=== PATIENT | female | born 2005 | race Caucasian/White ===

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

== ENCOUNTER → 2025-09-25 | Outpatient (CLI) | payer BC, SELFPAY ==
--- OUTSIDE RECORDS SUMMARY | 2025-09-25 19:12 | XMS RPT_ITS | CCD ---
Author Organization [facility] Care Team Providers Care District Engineer Name Role Phone Cassandra Mendoza Unavailable Eileen Matthews N Unavailable Cassandra Mendoza Unavailable [phone] Judith Starr MD Primary Care Provider Norma Murphy MD Primary Care Provider Norma Murphy MD Primary Care Provider SEIFRIED, JUDITH Primary Care Unavailable PODLOGAR, JULISSA Referring Unavailable SEIFRIED, JUDITH Primary Care Unavailable PODLOGAR, JULISSA Referring Unavailable SEIFRIED, JUDITH Primary Care Unavailable GABE ALVAREZ Referring Unavailable PODLOGAR, JULISSA Attending Unavailable NORMA MURPHY Primary Care Unavailab EILEEN Felix Referring Unavailable KATHERINE, NORMA B Primary Care Unavailab le BURSNORMA WARE B Primary Care Unavailab le MARYSELEY, SONIAOPHER B Primary Care Unavailab le Kris, Judith Primary Care Unavailable Dossi, Mary Attending Unavailable Kris, Judith Referring Unavailable Kris, Judith Referring Unavailable Dossi, Mary Attending Unavailable Kris, Judith Primary Care Unavailable Kris, Judith Referring Unavailable Dossi, Mary Attending Unavailable Kris, Judith Primary Care Unavailable Kris, Judith Referring Unavailable Dossi, Mary Attending Unavailable Kris, Judith Primary Care Unavailable Katherine HENDRIX, Norma Pina Primary Care Provider Allergies Allergy Classification Reported Allergen(s) Allergy Type Date of Onset Reaction(s) Facility (3 sources) predniSONE drug allergy 03-03-2017 [facility] Work Phone: (9 sources) prednisoLONE; Translations: [PREDNISOLONE SODIUM PHOSPHATE] Drug Allergy 07-30-2015 Hives [facility] Work Phone: (1 source) predniSONE Drug Allergy 10-29-2023 [facility] Repository Medications Current Medications Medication Drug Class(es) Dates Sig (Normalized) Sig (Original) [id number] 200 actuat albuterol 0.09 mg/actuat metered dose inhaler (10 sources) beta2-Adrenergic Agonist Start: 03-27-2023 take 2 puff(s) by inhalation every four hours as needed for wheezing albuterol HFA (VENTOLIN HFA) 90 mcg/actuation inhaler Inhale 2 Puffs as instructed every 4 hours as needed for wheezing/shortnes s of breath. 1 Each 1 03/27/2023 Active Start: 03-23-2023 take 2 puff(s) by in halation every four hours as needed for wheezing VENTOLIN HFA 90 mcg/actuation inhaler Indications: Wheezing Inhale 2 Puffs as instructed every 4 hours as needed for wheezing/shortness of breath. 18 g 0 03/23/2023 Active Start: 03-25-2022 End: 03-23-2023 take 2 puff(s) by inhalation every four hours as needed for wheezing VENTOLIN HFA 90 mcg/actuation inhaler Inhale 2 Puffs as instructed every 4 hours as needed for wheezing/shortness of breath. 18 g 0 03/25/2022 03/23/2023 Discontinued Start: 01-31-2021 End: 03-25-2022 take 2 puff(s) by mouth every four hours as needed VENTOLIN HFA 90 mcg/actuation inhaler INHALE 2 PUFFS BY MOUTH EVERY 4 HOURS NEEDED AND 20 MINUTES PRIOR TO EXCERCISE 18 g 0 01/31/2021 03/25/2022 Discontinued Comment on above: Inhale 2 Puffs as in structed every 4 hours as needed for wheezing/shortness of breath. INHALE 2 PUFFS BY MO UT EVERY 4 HOURS NEEDED AND 20 MINUTES PRIOR TO EXCERCISE amoxicillin 875 mg / clavulanate 125 mg oral tablet (1 source) Penicillin-class Antibacterial Start: 03-23-20 End: 03-28-20 take 1 tablet by mouth twice daily amoxicillin-clavul anic acid (AUGMENTIN) 875-125 mg per tablet Indications: Acute non-recurrent sinusitis, unspecified location Take 1 tablet by mouth twice daily for 5 days. 10 tablet 0 03/23/2023 03/28/2023 Active Comment on above: Take 1 tablet by sergio th twice daily for 5 days. loratadine 10 mg oral tablet (4 sources) Start: 10-30-20 take 1 tablet by mouth once daily loratadine (CLARITIN) 10 mg tablet Take 1 tablet by mouth once daily. 30 tablet 10/30/2022 Active Comment on above: Take 1 tablet by sergio th once daily. sodium chloride 0.111 meq/ml nasal spray (4 sources) Start: 10-30-20 sodium chloride (SALINE MIST) 0.65 % nasal spray Use 1 Dewitt in the nose as needed for cold/allergy symptoms. 1 mL 10/30/2022 Active Comment on above: Use 1 Dewitt in the n ose as needed for cold/allergy symptoms. Problems Active Problems Problem Classification Problem Date Documented Da te Episodic/Chronic Administrative/social admission (1 source) Patient encounter status; Translations: [Persons encountering health services in other specified circumstances] Episodic Other bone disease and musculoskeletal deformities (1 source) Segmental and somatic dysfunction of cervical region; Translations: [Segmental and somatic dysfunction of cervical region] Onset: 10-29-2023 Episodic Other bone disease and musculoskeletal deformities (1 source) Segmental and somatic dysfunction of lumbar region; Translations: [Segmental and somatic dysfunction of lumbar region] Onset: 10-29-2023 Episodic Other bone disease and musculoskeletal deformities (1 source) Segmental and somatic dysfunction of thoracic region; Translations: [Segmental and somatic dysfunction of thoracic region] Onset: 10-29-2023 Episodic Other connective tissue disease (2 sources) Pain in left foot; Translations: [Pain in left foot] 05-27-2023 Episodic Other connective tissue disease (1 source) Pain in left foot; Translations: [Foot pain, left] Onset: 05-27-2023 Episodic Other lower respiratory disease (1 source) Cough; Translations: [Cough, unspecified type] Episodic Other lower respiratory disease (1 source) Wheezing; Translations: [Wheezing] Episodic Other upper respiratory disease (8 sources) Allergic rhinitis; Translations: [Allergic rhinitis, unspecified] Onset: 07-30-2015 07-30-2015 Chronic Other upper respiratory infections (1 source) Acute sinusitis; Translations: [Acute sinusitis, unspecified] Episodic Spondylosis; intervertebral disc disorders; other back problems (2 sources) Dorsalgia, unspecified; Translations: [Pain in thoracic spine] Onset: 04-29-2023 Episodic Superficial injury; contusion (1 source) Contusion of left foot; Translations: [Contusion of left foot, initial encounter] 05-27-2023 Episodic Past or Other Problems Problem Classification Problem Date Documented Da te Episodic/Chronic Cardiac dysrhythmias (2 sources) Tachycardia; Translations: [Tachycardia, unspecified] Onset: 08-18-2022 Episodic Other injuries and conditions due to external causes (3 sources) Other injury of muscle(s) and tendon(s) of peroneal muscle group at lower leg level, right leg, initial encounter; Translations: [Other injury of muscle(s) and tendon(s) of peroneal muscle group at lower leg level, right leg, initial encounter] Onset: 03-03-2017 03-04-2017 Episodic Other non-traumatic joint disorders (4 sources) Ankle instability; Translations: [Ankle pain] Onset: 03-03-2017 03-04-2017 Episodic Other non-traumatic joint disorders (2 sources) Ankle pain; Translations: [Pain in right ankle and joints of right foot] Onset: 03-03-2017 03-03-2017 Episodic Results Test Name Value Interpretation Reference Range Facility Chiropractic Reporton 2022 Chiropractic Report [facility] [address] [place], [place] [id number] OFFICE VISIT Date of Service: 10/29/23 MR#: [id number] Acct: [id number] Name: IDANIA RUST Rep #: [id number] : 2005 Provider: DAVID [place] Age/Sex: 18/F Location: [facility] Status: Signed Intake Vital Signs 05/05/19 09:48 Height 5 ft 7 in Intake Visit Reasons: Back Pain Chief Complaint: Low back and neck pain Is patient in pain?: Yes (Neck, mid/low back) Pain scale (1-10): 5 Allergies prednisone Allergy (Verified 10/29/23 14:30) Hives Medications NK 03/18/22 [History Confirmed 10/29/23] [facility] Social History Smoking Status: Never smoker alcohol intake: never substance use type: does not use what type of physical activity do you participate in: walking frequency: 5-6 times per week HPI Back Pain Chief Complaint: Mid/lower Back Pain Visit Number: 4 Details: Idania Rust is a 18 year old F here today for neck and low back pain. She states her neck is sore and stiff. 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 Pt. states she feels like her low back is going to 'pop' when she bends forward. She rates her low back pain 5/10 today. She treats pain at home with stretching and heat. Idania reports chiropractic treatments are effective in relieving her pain and discomfort. Denies injury, numbness, tingling, or radiculopathy. Location: neck and Low back Duration: intermittent Aggravating or associated factors: Playing Flute, bending Relieving factors: Chiro/stretching Pain Quality: aching, dull, cramping and other (Tight) Exam Musc General: Yes normal posture, normal gait, joint tenderness and decreased range of motion Cervical Spine: Yes normal cervical lordosis, Yes cervical muscular tenderness bilateral lower paracervical muscle and trapezius, Yes cervical spasm bilateral lower trapezius and paracervical muscles and Yes misalignment misalignment: C2, C5 and C6 Thoracic/Lumber: Yes thoracic and lumbar spine normal to inspection, Yes paraspinal tenderness bilaterally in the mid lumbar and in the lower lumbar and on the left greater than right (upper thoracic), Yes thoraco-lumbar spasm on the left greater than right (trap/levator, paraspinal (T10- L5), QL) and Yes misalignment T1, T2, T3, T6, T7, T8, L3, L4 and L5 Office Procedures Procedures - Chiropractic Procedures Manipulation: Cervical C2 and C6, Lumbar L3 and L5 and Thoracic T3 and T7 Manipulation: 3-4 regions Patient Response: positive Assessment and Plan Assessment and Plan (1) Back pain: Status: Acute Qualifiers: Back pain laterality: left Back pain location: thoracic back pain Chronicity: acute Qualified Code(s): M54.6 - Pain in thoracic spine (2) Segmental and somatic dysfunction of cervical region: Status: Acute (3) Segmental and somatic dysfunction of lumbar region: Status: Acute (4) Segmental and somatic dysfunction of thoracic region: Status: Acute Orders: Orders Chiropractic Treatments Today M54.9 - Dorsalgia, unspecified, M99.01 - Segmental and somatic dysfunction of cervical region, M99.02 - Segmental and somatic dysfunction of thoracic region, M99.03 - Segmental and somatic dysfunction of lumbar region Plan Patient was treated without incident. Continue care as needed. Plan Details Goals Barriers: Goals Decrease pain and spasm Improve ROM Barriers Playing flute Long distance running Follow Up: PRN Coding Level of Care Code No Charge Diagnoses Acute left-sided thoracic back pain M54.6 Back pain laterality: left Back pain location: thoracic back pain Chronicity: acute Segmental and somatic dysfunction of cervical region M99.01 Segmental and somatic dysfunction of lumbar region M99.03 Segmental and somatic dysfunction of thoracic region M99.02 CPT Codes Procedures - Manipulation: 3-4 regions ([id number]) 10/29/23 1600 Date Mary De La Vega Signature: Date (if applicable) CC: [facility] 05-27-2023 [facility] Office Visit (UCWSTR) ---- IDANIA RUST ([id number]) 1 F Date Time Provider Department 05/27/23 11:30 AM EILEEN ABEL [facility] During your visit today, we recorded the following information about you: Temperature Pulse Respiration Blood pressure 98.4 degrees 71/minute 18/minute 122/78 Weight 61 kg Eileen Abel APRN.CNP 05/27/2023 4:44 PM Signed This note was created using NoteWriter. Subjective Idania Rust is a 18 year old female. 18 year old female with no PMH presents for complaints of foot pain. Acute onset yesterday Left foot Endorses that a bench from kitchen table fell onto left foot. +bruising +pain +pain with ROM Denies accompanying injuries. Denies head injury. Denies LOC. Denies neck pain. Denies back pain. Denies prior history of foot fracture or surgery. 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 No faith healer was used. Pain (foot) Pain location: left foot. This is a new problem. The current episode started yesterday. There has been a history of trauma. The problem occurs constantly. The problem has been unchanged. The quality of the pain is described as aching and sharp. The pain is at a severity of 5/10. The pain is moderate. Associated symptoms include joint swelling and a limited range of motion. Pertinent negatives include no fever, inability to bear weight, itching, joint locking, numbness, stiffness or tingling. The symptoms are aggravated by activity. She has tried nothing for the symptoms. The treatment provided no relief. Family history does not include gout or rheumatoid arthritis. There is no history of diabetes, gout, osteoarthritis or rheumatoid arthritis. PAST MEDICAL HISTORY Diagnosis Date Broken fibula 07/2016 Menstrual periods irregular 03/26/2018 NEGATIVE MEDICAL HISTORY 03/2008 Normal Color Vision PAST SURGICAL HISTORY Procedure Laterality Date NONE ALLERGIES Orapred [Prednisolone Sodium Phosphate] MEDICATIONS albuterol HFA (VENTOLIN HFA) 90 mcg/actuation inhaler Inhale 2 Puffs as instructed every 4 hours as needed for wheezing/shortness of breath. sodium chloride (SALINE MIST) 0.65 % nasal spray Use 1 Dewitt in the nose as needed for cold/allergy symptoms. loratadine (CLARITIN) 10 mg tablet Take 1 tablet by mouth once daily. FAMILY HISTORY Problem Relation Age of Onset Asthma Father Social History Tobacco Use Smoking status: Never Smokeless tobacco: Never Vaping Use Vaping Use: Never used Substance Use Topics Alcohol use: No Drug use: No Review of Systems Constitutional: Negative for activity change, appetite change, diaphoresis, fatigue and fever. Eyes: Negative for pain, discharge, redness and itching. Respiratory: Negative for apnea, cough, choking, chest tightness and shortness of breath. Cardiovascular: Negative for chest pain, palpitations and leg swelling. Gastrointestinal: Negative for abdominal pain, diarrhea, nausea and vomiting. Musculoskeletal: Negative for arthralgias, back pain, gout and stiffness. Left foot Skin: Negative for color change, itching, pallor, rash and wound. Allergic/Immunologi c: Negative for environmental allergies, food allergies and immunocompromised state. Neurological: Negative for dizziness, tingling, facial asymmetry and numbness. Hematological: Negative for adenopathy. Does not bruise/bleed easily. Psychiatric/Behavio ral: Negative for agitation and behavioral problems. Objective BP 122/78 Pulse 71 Temp 36.9 ?C (98.4 ?F) (Tympanic) Resp 18 Wt 61 kg (134 lb 6.4 oz) LMP 06/01/2021 SpO2 100% Physical Exam Vitals and nursing note reviewed. Constitutional: General: She is not in acute distress. Appearance: Normal appearance. She is normal weight. She is not ill-appearing, toxic-appearing or diaphoretic. HENT: Head: Normocephalic and atraumatic. Right Ear: Ear canal and external ear normal. Left Ear: Ear canal and external ear normal. Nose: Nose normal. No congestion or rhinorrhea. Mouth/Throat: Mouth: Mucous membranes are moist. Pharynx: No oropharyngeal exudate or posterior oropharyngeal erythema. Eyes: General: Right eye: No discharge. Left eye: No discharge. Extraocular Movements: Extraocular movements intact. Conjunctiva/sclera: Conjunctivae normal. Pupils: Pupils are equal, round, and reactive to light. Cardiovascular: Rate and Rhythm: Normal rate and regular rhythm. Pulses: Normal pulses. Heart sounds: Normal heart sounds. No murmur heard. No friction rub. Pulmonary: Effort: Pulmonary effort is normal. No respiratory distress. Breath sounds: Normal breath sounds. No stridor. No wheezing, rhonchi or rales. Chest: Chest wall: No tenderness. Abdominal: General: Abdomen is flat. There is no distension. Palpations: Abdomen is soft. There is no mass. Tenderness: (more content not included)... Normal [facility] XR FOOT 3V AP/LAT/OBL LTon 0 05-27-2023 XR FOOT 3V AP/LAT/OBL LT * * *Final Report* * * DATE OF EXAM: May 27 2023 12:19PM [id number] - XR FOOT 3V AP/LAT/OBL LT / PROCEDURE REASON: Foot pain, left * * * * Physician Interpretation * * * * TITLE: XR FOOT 3V AP/LAT/OBL LT CLINICAL INDICATION: Pain TECHNIQUE: 3 view radiographic study of the left foot COMPARISON: None FINDINGS: No acute fracture or dislocation identified. Joint spaces preserved. IMPRESSION: No radiographic evidence of acute osseous abnormality Ceramic Coater Machine: [facility] Transcribe Date/Time: May 27 2023 12:25P Dictated by : AMBER GRADY MD This examination was interpreted and the report reviewed and electronically signed by: AMBER GRADY MD on May 27 2023 12:26PM EST [id number] Normal [facility] XR FOOT GENERAL 3V AP/LAT/OB L LEFTon 05-27-2023 [facility] XR Foot - left AP and Latera l and obliqueon 05-27-2023 IMPRESSION: No radiographic evidence of acute osseous abnormality Ceramic Coater Machine: [facility] Transcribe Date/Time: May 27 2023 12:25P Dictated by : AMBER GRADY MD This examination was interpreted and the report reviewed and electronically signed by: AMBER GRADY MD on May 27 2023 12:26PM EST DIVISION OF RADIOLOGY * * *Final Report* * * DATE OF EXAM: May 27 2023 12:19PM [id number] - XR FOOT 3V AP/LAT/OBL LT / PROCEDURE REASON: Foot pain, left * * * * Physician Interpretation * * * * TITLE: XR FOOT 3V AP/LAT/OBL LT CLINICAL INDICATION: Pain TECHNIQUE: 3 view radiographic study of the left foot COMPARISON: None FINDINGS: No acute fracture or dislocation identified. Joint spaces preserved. DIVISION OF RADIOLOGY Provider, [facility] [place] - 05/27/2023 * * *Final Report* * * DATE OF EXAM: May 27 2023 12:19PM WOX [id number] - XR FOOT 3V AP/LAT/OBL LT / PROCEDURE REASON: Foot pain, left * * * * Physician Interpretation * * * * TITLE: XR FOOT 3V AP/LAT/OBL LT CLINICAL INDICATION: Pain TECHNIQUE: 3 view radiographic study of the left foot COMPARISON: None FINDINGS: No acute fracture or dislocation identified. Joint spaces preserved. IMPRESSION IMPRESSION: No radiographic evidence of acute osseous abnormality Ceramic Coater Machine: [facility] Transcribe Date/Time: May 27 2023 12:25P Dictated by : AMBER GRADY MD This examination was interpreted and the report reviewed and electronically signed by: AMBER GRADY MD on May 27 2023 12:26PM EST [facility] Radiology Study observation (narrative) [facility] XR Foot - left AP and Latera l and obliqueOrdered By: [facility] Provider on 05-27-2023 [facility] Chiropractic Reporton 2022 Chiropractic Report [facility] [address] [place] [address] OFFICE VISIT Date of Service: 04/29/23 MR#: [id number] Acct: [id number] Name: IDANIA RUST Rep #: [id number] : 2005 Provider: DAVID [place] Age/Sex: 18/F Location: [facility] Status: Signed Intake Intake Visit Reasons: Back Pain Chief Complaint: Low back and neck pain Is patient in pain?: Yes (low back ) Pain scale (1-10): 5 Allergies prednisone Allergy (Verified 04/29/23 10:09) Hives Medications NK 03/18/22 [History Confirmed 04/29/23] [facility] Social History Smoking Status: Never smoker alcohol intake: never substance use type: does not use what type of physical activity do you participate in: walking frequency: 5-6 times per week HPI Back Pain Chief Complaint: Mid/lower Back Pain Visit Number: 3 Details: Idania Rust is a 18 year old F here today for neck and low back pain. 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 She advisesshe experienced another episode in her low back last Thursday while she was at work a strange sensation in the left side of her low back like her pants were bunched up and she also had some numbness and tingling as well. She states it lasted about 12 hours and is now just sore and tight. Pt. states she feels like her low back is going to 'pop' when she bends forward. She rates her low back pain 5/10 today. She treats pain at home with stretching and heat. Idania reports chiropractic treatments are effective in relieving her pain and discomfort. Denies injury, numbness, tingling, or radiculopathy. Location: neck and Low back Duration: intermittent Aggravating or associated factors: Playing Flute, bending Relieving factors: Chiro/stretching Pain Quality: aching, dull, cramping and other (Tight) Exam Musc General: Yes normal posture, normal gait, joint tenderness and decreased range of motion Cervical Spine: Yes normal cervical lordosis, Yes cervical muscular tenderness bilateral lower paracervical muscle and trapezius, Yes cervical spasm bilateral lower trapezius and paracervical muscles and Yes misalignment misalignment: C2, C5 and C6 Thoracic/Lumber: Yes thoracic and lumbar spine normal to inspection, Yes paraspinal tenderness bilaterally in the mid lumbar and in the lower lumbar and on the left greater than right (upper thoracic), Yes thoraco-lumbar spasm on the left greater than right (trap/levator, paraspinal (T10- L5), QL) and Yes misalignment T1, T2, T3, T6, T7, T8, L3, L4 and L5 Office Procedures Procedures - Chiropractic Procedures Manipulation: Cervical C2 and C6, Lumbar L3 and L5 and Thoracic T3 and T7 Manipulation: 3-4 regions Patient Response: positive Assessment and Plan Assessment and Plan (1) Back pain: Status: Acute Qualifiers: Back pain laterality: left Back pain location: thoracic back pain Chronicity: acute Qualified Code(s): M54.6 - Pain in thoracic spine (2) Segmental and somatic dysfunction of cervical region: Status: Acute (3) Segmental and somatic dysfunction of lumbar region: Status: Acute (4) Segmental and somatic dysfunction of thoracic region: Status: Acute Orders: Orders Chiropractic Treatments 04/29/23 M54.6 - Pain in thoracic spine, M99.01 - Segmental and somatic dysfunction of cervical region, M99.02 - Segmental and somatic dysfunction of thoracic region, M99.03 - Segmental and somatic dysfunction of lumbar region Plan Patient was treated without incident. Continue care. Plan Details Goals Barriers: Goals Decrease pain and spasm Improve ROM Barriers Playing flute Long distance running Follow Up: PRN Coding Level of Care Code No Charge Diagnoses Back pain M54.6 Back pain laterality: left Back pain location: thoracic back pain Chronicity: acute Segmental and somatic dysfunction of cervical region M99.01 Segmental and somatic dysfunction of lumbar region M99.03 Segmental and somatic dysfunction of thoracic region M99.02 CPT Codes Procedures - Manipulation: 3-4 regions ([id number]) 05/04/23 1011 Date Mary De La Vega Signature: Date (if applicable) CC: Normal [facility] Chiropractic Reporton 2022 Chiropractic Report [facility] [address] [place] [address] OFFICE VISIT Date of Service: 04/13/23 MR#: [id number] Acct: [id number] Name: IDANIA RUST Rep #: [id number] : 2005 Provider: DAVID [place] Age/Sex: 18/F Location: [facility] Status: Signed Intake Intake Visit Reasons: Back Pain Chief Complaint: Low back and neck pain Allergies prednisone Allergy (Verified 08/18/22 09:24) Hives [facility] Social History Smoking Status: Never smoker alcohol intake: never substance use type: does not use what type of physical activity do you participate in: walking frequency: 5-6 times per week HPI Back Pain Chief Complaint: Mid/lower Back Pain Visit Number: 2 Details: Idania Rust is an 17 year old F here today for neck and low back pain. 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 She rates her neck pain 8/10 today. She advises she was experiencing a strange sensation in her low back like her pants were bunched up last but there was no palpatable lump or bump. She states she is no longer experiencing that feeling but it still doesn't feel 'right'. She treats pain at home by stretching and heat. Idania reports chiropractic treatments are effective in relieving her pain and discomfort. Denies injury, numbness, tingling, or radiculopathy. Location: neck and Low back Duration: intermittent Aggravating or associated factors: Playing Flute Relieving factors: Chiro/stretching Pain Quality: aching, dull, cramping and other (Tight) Exam Musc General: Yes normal posture, normal gait, joint tenderness and decreased range of motion Cervical Spine: Yes normal cervical lordosis, Yes cervical muscular tenderness bilateral lower paracervical muscle and trapezius, Yes cervical spasm bilateral lower trapezius and paracervical muscles and Yes misalignment misalignment: C2, C5 and C6 Thoracic/Lumber: Yes thoracic and lumbar spine normal to inspection, Yes paraspinal tenderness bilaterally in the mid lumbar and in the lower lumbar and on the left greater than right (upper thor acic), Yes thoraco-lumbar spasm on the left greater than right (trap/levator, paraspinal (T10-L5), QL) and Yes misalignment T1, T2, T3, T6, T7, T8, L3, L4 and L5 Office Procedures Procedures - Chiropractic Procedures Manipulation: Cervical C2 and C6, Lumbar L3 and L5 and Thoracic T3 and T7 Manipulation: 3-4 regions Patient Response: positive Assessment and Plan Assessment and Plan (1) Back pain: Status: Acute Qualifiers: Back pain laterality: left Back pain location: thoracic back pain Chronicity: acute Qualified Code(s): M54.6 - Pain in thoracic spine (2) Segmental and somatic dysfunction of cervical region: Status: Acute (3) Segmental and somatic dysfunction of lumbar region: Status: Acute (4) Segmental and somatic dysfunction of thoracic region: Status: Acute Orders: Orders Chiropractic Treatments 04/13/23 M54.6 - Pain in thoracic spine, M99.01 - Segmental and somatic dysfunction of cervical region, M99.02 - Segmental and somatic dysfunction of thoracic region, M99.03 - Segmental and somatic dysfunction of lumbar region Plan Patient was treated without incident. Continue care. Plan Details Goals Barriers: Goals Decrease pain and spasm Improve ROM Barriers Playing flute Long distance running Follow Up: PRN Coding Level of Care Code No Charge Diagnoses Back pain M54.6 Back pain laterality: left Back pain location: thoracic back pain Chronicity: acute Segmental and somatic dysfunction of cervical region M99.01 Segmental and somatic dysfunction of lumbar region M99.03 Segmental and somatic dysfunction of thoracic region M99.02 CPT Codes Procedures - Manipulation: 3-4 regions (32730) 04/16/23 1151 Date Mary De La Vega Signature: Date (if applicable) CC: [facility] 03-26-2023 [facility] Telephone ([facility]) ---- IDANIA RUST ([id number]) 1 F Date Time Provider Department 03/26/23 BRENDON ROGER [facility] During your visit today, we recorded the following information about you: Olivia Steele [facility] 03/26/2023 9:25 AM Signed Patient stated Dr. Roger prescribed Ventolin HFA inhaler for her. Pharmacy said insurance won't cover it as written. She thinks it may be because it was written as brand name, but she is not sure. Please review and advise patient if new rx can be sent. [phone]. Norma Murphy MD 03/27/2023 9:17 AM Signed New rx sent without being GABO. Hopefully that fixes it. Belgica Bhakta Ma 03/27/2023 9:46 AM Signed Pt called and notified. Belgica Bhakta Ma Allergies As of Date: 03/26/2023 Noted Allergy Reaction ORAPRED (PREDNISOLONE SODIUM PHOS*07/30/2015 4 - Hives Date Reviewed: 10/30/2022 Reviewed by: Julissa Garrison APRN.SOCIAL WORK ASSISTANT - Fully Assessed Reason for Visit: Rx issue [Other] Order(s):albuterol HFA (VENTOLIN HFA) 90 mcg/actuation inhalerInhale 2 Puffs as instructed every 4 hours as needed for wheezing/shortness of breath.Disp: 1 EachRfl: 1 Prescriptions as of 03/27/2023 - albuterol HFA (VENTOLIN HFA) 90 mcg/actuation inhaler Inhale 2 Puffs as instructed every 4 hours as needed for wheezing/shortness of breath. - amoxicillin-clavula asher acid (AUGMENTIN) 875-125 mg per tablet Take 1 tablet by mouth twice daily for 5 days. - sodium chloride (SALINE MIST) 0.65 % nasal spray Use 1 Dewitt in the nose as needed for cold/allergy symptoms. - loratadine (CLARITIN) 10 mg tablet Take 1 tablet by mouth once daily. Meds Comments as of 07/30/2015: All medications have been reviewed today/July 09, 2007 Carmela Hernandez [facility] Problem List As Of Date 03/26/2023 Noted Resolved Allergic rhinitis [J30.9] 07/30/2015 Prescriptions ordered this encounter Disp Refills Start End ALBUTEROL SULFATE HFA 90 MCG/ACTUATI* 1 Ea* 1 03/27/2023 Cmt: Generic or brand: dispense inhaler preferred by patient/insurance unless GABO flag is selected. Route: INHALATION Sig: Inhale 2 Puffs as instructed every 4 hours as needed for wheezing/shortness of breath. Medications Discontinued During This Encounter Prescriptions - VENTOLIN HFA 90 mcg/actuation inhaler (Discontinued) Inhale 2 Puffs as instructed every 4 hours as needed for wheezing/shortness of breath. Encounter Status:Closed by VIKI DAWKINS MA on 03/27/23 Normal [facility] CNOVon 03-23-2023 CNOV Office Visit ([facility]) ---- IDANIA RUST ([id number]) 1 F Date Time Provider Department 03/23/23 8:00 AM BRENDON ROGER [facility] During your visit today, we recorded the following information about you: Temperature Pulse Respiration Blood pressure 98.3 degrees 98/minute 16/minute 102/64 Weight 62.1 kg Brendon Roger MD 03/23/2023 8:26 AM Signed Patient presents with: Chest Congestion: cough,sinus pressure and headache x 2 weeks HPI: Feeling allergies are flared for 2 weeks with cough, sinus symptoms worsened the last few days. Positive symptoms: Cough, Sinus pressure, Headache, Nasal Congestion, Rhinorrhea, Body Aches one day, green phlegm and sinus drainage Negative symptoms: Fever, Nausea, Vomiting, Diarrhea, OTC: Sudafed once and ran out, Ibuprofen, inhaler improves chest tightness, claritin Exercise induced asthma PAST MEDICAL HISTORY Diagnosis Date Broken fibula 07/2016 Menstrual periods irregular 03/26/2018 NEGATIVE MEDICAL HISTORY 03/2008 Normal Color Vision ACTIVE PROBLEM LIST Allergic Rhinitis MEDICATIONS: Current Outpatient Medications Medication Sig sodium chloride (SALINE MIST) 0.65 % nasal spray Use 1 Dewitt in the nose as needed for cold/allergy symptoms. loratadine (CLARITIN) 10 mg tablet Take 1 tablet by mouth once daily. VENTOLIN HFA 90 mcg/actuation inhaler Inhale 2 Puffs as instructed every 4 hours as needed for wheezing/shortness of breath. No current facility-administer ed medications for this visit. ALLERGIES: ALLERGIES Allergen Reactions Orapred [Prednisolo* Hives VITALS: BP 102/64 Pulse 98 Temp 36.8 ?C (98.3 ?F) Resp 16 Wt 62.1 kg (137 lb) LMP 06/01/2021 SpO2 99% PHYSICAL EXAM: GEN: Pleasant, in no acute distress. HEENT: PERRL, EOMI, conjunctiva clear Ears: canals clear. TMs without erythema, bulge, or effusion Sinuses: points to damon-glabellum as location of pressure Throat: moist mucous membranes, no erythema, no exudate Neck: supple, no thyromegaly, no lymphadenopathy HEART: regular rate and rhythm, no murmurs LUNGS: clear to auscultation, no wheezes or crackles, no increased WOB ASSESSMENT/PLAN: 1. Acute non-recurrent sinusitis, unspecified location - ICD9: 461.9, ICD10: J01.90 (primary diagnosis) Continue allergy treatment - AMOXICILLIN 875 MG-POTASSIUM CLAVULANATE 125 MG TABLET for secondary bacterial sinusitis 2. Wheezing - ICD9: 786.07, ICD10: R06.2 Refill - VENTOLIN HFA 90 MCG/ACTUATION AEROSOL INHALER Patient had adverse side effects from oral steroid as a child. Consider inhaled steroid asthma flare persists. Brendon Roger MD Referring Provider: NORMA MURPHY [[id number]] Allergies As of Date: 03/23/2023 Noted Allergy Reaction ORAPRED (PREDNISOLONE SODIUM PHOS*07/30/2015 4 - Hives Date Reviewed: 10/30/2022 Reviewed by: Julissa Garrison APRN.SOCIAL WORK ASSISTANT - Fully Assessed Reason for Visit: Chest Congestion [236] Cmt: cough,sinus pressure and headache x 2 weeks Primary Visit Diagnosis:Acute non-recurrent sinusitis, unspecified location [J01.90] Other Visit Diagnosis:Wheezing [R06.2] Order(s):amoxicilli n-clavulanic acid (AUGMENTIN) 875-125 mg per tabletTake 1 tablet by mouth twice daily for 5 days.Disp: 10 tabletRfl: 0 VENTOLIN HFA 90 mcg/actuation inhalerInhale 2 Puffs as instructed every 4 hours as needed for wheezing/shortness of breath.Disp: 18 gRfl: 0 Prescriptions as of 03/23/2023 - amoxicillin-clavula asher acid (AUGMENTIN) 875-125 mg per tablet Take 1 tablet by mouth twice daily for 5 days. - VENTOLIN HFA 90 mcg/actuation inhaler Inhale 2 Puffs as instructed every 4 hours as needed for wheezing/shortness of breath. - sodium chloride (SALINE MIST) 0.65 % nasal spray Use 1 Dewitt in the nose as needed for cold/allergy symptoms. - loratadine (CLARITIN) 10 mg tablet Take 1 tablet by mouth once daily. Meds Comments as of 07/30/2015: All medications have been reviewed July 09, 2007 Carmela Hernandez [facility] Problem List As Of Date 03/23/2023 Noted Resolved Allergic rhinitis [J30.9] 07/30/2015 Prescriptions ordered this encounter Disp Refills Start End AMOXICILLIN 875 MG-POTASSIUM CLAVULA* 10 t* 0 03/23/2023 03/28/2023 Route: ORAL Sig: Take 1 tablet by mouth twice daily for 5 days. VENTOLIN HFA 90 MCG/ACTUATION AEROSO* 18 g 0 03/23/2023 Cmt: Generic or brand: dispense inhaler preferred by patient/insurance unless GABO flag is selected. Route: INHALATION Sig: Inhale 2 Puffs as instructed every 4 hours as needed for wheezing/shortness of breath. Medications Discontinued During This Encounter Prescriptions - VENTOLIN HFA 90 mcg/actuation inhaler (Discontinued) Inhale 2 Puffs as instructed every 4 hours as needed for wheezing/shortness of breath. Encounter Status:Closed by BRENDON ROGER on 03/23/23 [facility] Chiropractic Reporton 2022 Chiropractic Report [facility] [address] [place] [address] OFFICE VISIT Date of Service: 11/24/22 MR#: [id number] Acct: [id number] Name: LEORAIDANIA M Rep #: [id number] : 2005 Provider: DAVID [place] Age/Sex: 17/F Location: [facility] Status: Signed Intake Intake Visit Reasons: Back Pain Chief Complaint: Low back and neck pain Is patient in pain?: Yes (neck right hip) Pain scale (1-10): 5 Allergies prednisone Allergy (Verified 08/18/22 09:24) Hives [facility] Social History Smoking Status: Never smoker alcohol intake: never substance use type: does not use what type of physical activity do you participate in: walking frequency: 5-6 times per week HPI Back Pain Chief Complaint: Mid/lower Back Pain Visit Number: 1 Details: Idania Rust is an 17 year old F here today for neck and low back pain. She states her neck is sore and tight especially the right side d/t playing her flute daily.She rates her neck pain 5/10 today. She advises she went skiing over the weekend her right hip and low back feel like she pinched a nerve. She rates her hip pain 4/10 and her pain radiates down her right thigh to her knee at times. She treats pain at home by stretching and heat. Idania states chiropractic treatments are effective in relieving her pain. Denies injury, numbness, tingling, or radiculopathy. Location: neck and Low back Duration: intermittent Aggravating or associated factors: Playing Flute Relieving factors: Chiro/stretching Pain Quality: aching, cramping and other (Tight) Exam Musc General: Yes normal posture, normal gait, joint tenderness and decreased range of motion Cervical Spine: Yes normal cervical lordosis, Yes cervical muscular tenderness bilateral lower paracervical muscle and trapezius, Yes cervical spasm bilateral lower trapezius and paracervical muscles and Yes misalignment misalignment: C2, C5 and C6 Thoracic/Lumber: Yes thoracic and lumbar spine normal to inspection, Yes paraspinal tenderness bilaterally in the upper thoracic, in the mid lumbar and in the lower lumbar, on the right greater than left (lumbopelvic) and on the left greater than right (upper thoracic), Yes thoraco-lumbar spasm on the left greater than right (trap/levator, paraspinal (T10-L5), QL) and Yes misalignment T1, T2, T3, T6, T7, T8, L3, L4 and L5 Office Procedures Procedures - Chiropractic Procedures Manipulation: Cervical C2 and C6, Lumbar L3 and L5 and Thoracic T3 and T7 Manipulation: 3-4 regions Patient Response: positive Assessment and Plan Assessment and Plan (1) Back pain: Status: Acute Qualifiers: Back pain laterality: left Back pain location: thoracic back pain Chronicity: acute Qualified Code(s): M54.6 - Pain in thoracic spine (2) Segmental and somatic dysfunction of cervical region: Status: Acute (3) Segmental and somatic dysfunction of lumbar region: Status: Acute (4) Segmental and somatic dysfunction of thoracic region: Status: Acute Orders: Orders Chiropractic Treatments Today M54.6 - Pain in thoracic spine, M99.01 - Segmental and somatic dysfunction of cervical region, M99.02 - Segmental and somatic dysfunction of thoracic region, M99.03 - Segmental and somatic dysfunction of lumbar region Plan Patient was treated without incident. Continue care. Plan Details Goals Barriers: Goals Decrease pain and spasm Improve ROM Barriers Playing flute Long distance running Follow Up: PRN Coding Level of Care Code No Charge Diagnoses Back pain M54.6 Back pain laterality: left Back pain location: thoracic back pain Chronicity: acute Segmental and somatic dysfunction of cervical region M99.01 Segmental and somatic dysfunction of lumbar region M99.03 Segmental and somatic dysfunction of thoracic region M99.02 CPT Codes Procedures - Manipulation: 3-4 regions (39201) 11/24/22 1114 Date Mary De La Vega Signature: Date (if applicable) CC: [facility] 10-30-2022 [facility] Office Visit ([facility]) ---- IDANIA RUST ([id number]) 1 F Date Time Provider Department 10/30/22 4:15 PM [facility] During your visit today, we recorded the following information about you: Temperature Pulse Respiration Blood pressure 98.2 degrees 104/minute 18/minute 130/82 Weight 58.4 kg Julissa Garrison APRN.SOCIAL WORK ASSISTANT 10/30/2022 4:37 PM Signed Subjective HPI Rossy presents today with three day hx of cough, congestion, and both ears feel full. She is not feverish, she is eating and drinking. She has used her albuterol once today. Blood pressure 130/82, pulse 104, temperature 36.8 ?C (98.2 ?F), temperature source Tympanic, resp. rate 18, weight 58.4 kg (128 lb 12.8 oz), last menstrual period 06/01/2021, SpO2 99 %. PAST MEDICAL HISTORY Diagnosis Date Broken fibula 07/2016 Menstrual periods irregular 03/26/2018 NEGATIVE MEDICAL HISTORY 03/2008 Normal Color Vision PAST SURGICAL HISTORY Procedure Laterality Date NONE ALLERGIES Orapred [Prednisolone Sodium Phosphate] MEDICATIONS VENTOLIN HFA 90 mcg/actuation inhaler Inhale 2 Puffs as instructed every 4 hours as needed for wheezing/shortness of breath. sodium chloride (SALINE MIST) 0.65 % nasal spray Use 1 Dewitt in the nose as needed for cold/allergy symptoms. loratadine (CLARITIN) 10 mg tablet Take 1 tablet by mouth once daily. FAMILY HISTORY Problem Relation Age of Onset Asthma Father Social History Tobacco Use Smoking status: Never Smokeless tobacco: Never Vaping Use Vaping Use: Never used Substance Use Topics Alcohol use: No Drug use: No Review of Systems HENT: Ears feel full Respiratory: Positive for cough. All other systems reviewed and are negative. Objective Physical Exam Vitals and nursing note reviewed. Constitutional: Appearance: Normal appearance. HENT: Head: Normocephalic and atraumatic. Right Ear: Tympanic membrane, ear canal and external ear normal. Left Ear: Tympanic membrane, ear canal and external ear normal. Ears: Comments: Scant amount of fluid behind Tm Nose: Congestion present. Mouth/Throat: Mouth: Mucous membranes are dry. Pharynx: No oropharyngeal exudate or posterior oropharyngeal erythema. Eyes: Pupils: Pupils are equal, round, and reactive to light. Cardiovascular: Rate and Rhythm: Normal rate and regular rhythm. Heart sounds: No murmur heard. Pulmonary: Effort: Pulmonary effort is normal. No respiratory distress. Breath sounds: Normal breath sounds. No stridor. No wheezing, rhonchi or rales. Chest: Chest wall: No tenderness. Abdominal: General: Abdomen is flat. Palpations: Abdomen is soft. Musculoskeletal: General: Normal range of motion. Cervical back: Normal range of motion and neck supple. Lymphadenopathy: Cervical: No cervical adenopathy. Skin: General: Skin is warm and dry. Neurological: General: No focal deficit present. Mental Status: She is alert and oriented to person, place, and time. ASSESSMENT/PLAN: 1. Cough, unspecified type - ICD9: 786.2, ICD10: R05.9 Viral appearing Increased fluids Tea and honey Saline nasal spray Claritin Continue to use albuterol as needed - COVID WITH FLUA+B, ROUTINE Julissa Garrison APRN.SOCIAL WORK ASSISTANT Referring Provider: SELF [200] Allergies As of Date: 10/30/2022 Noted Allergy Reaction ORAPRED (PREDNISOLONE SODIUM PHOS*07/30/2015 4 - Hives Date Reviewed: 10/30/2022 Reviewed by: Julissa Garrison APRN.SOCIAL WORK ASSISTANT - Fully Assessed Reason for Visit: Ear Pain [817] Cmt: Bilateral ear pain, congestion and tight chest x 2 days Primary Visit Diagnosis:Cough, unspecified type [R05.9] Order(s):COVID WITH FLUA+B, ROUTINE [SQCOVFLU] Order #: [id number] sodium chloride (SALINE MIST) 0.65 % nasal sprayUse 1 Dewitt in the nose as needed for cold/allergy symptoms.Disp: 1 mLRfl: 0 loratadine (CLARITIN) 10 mg tabletTake 1 tablet by mouth once daily.Disp: 30 tabletRfl: 0 Prescriptions as of 10/30/2022 - sodium chloride (SALINE MIST) 0.65 % nasal spray Use 1 Dewitt in the nose as needed for cold/allergy symptoms. - loratadine (CLARITIN) 10 mg tablet Take 1 tablet by mouth once daily. - VENTOLIN HFA 90 mcg/actuation inhaler Inhale 2 Puffs as instructed every 4 hours as needed for wheezing/shortness of breath. Meds Comments as of 07/30/2015: All medications have been reviewed /July 09, 2007 Carmela Hernandez [facility] Problem List As Of Date 10/30/2022 Noted Resolved Allergic rhinitis [J30.9] 07/30/2015 Prescriptions ordered this encounter Disp Refills Start End SALINE MIST 0.65 % NASAL SPRAY AEROS* 1 mL 0 10/30/2022 Route: NASAL Sig: Use 1 Dewitt in the nose as needed for cold/allergy symptoms. LORATADINE 10 MG TABLET 30 t* 0 10/30/2022 Route: ORAL Sig: Take 1 tablet by mouth once daily. Encounter Status:Closed by JULISSA GARRISON on 10/30/22 [facility] 08-19-2022 [facility] Telephone (FAMWS) ---- IDANIA RUST ([id number]) 1 F Date Time Provider Department 08/19/22 JULISSA MCCRAY During your visit today, we recorded the following information about you: Julissa Mccray APRN.BHARATH 08/19/2022 7:58 AM Signed Please call patient and let her know her blood work is in normal limits. Julissa Mccray APRN.BHARATH German LPN 08/19/2022 8:58 AM Signed Number on file is mother Eileen. Results given. Voices understanding. Deedee German LPN Allergies As of Date: 08/19/2022 Noted Allergy Reaction ORAPRED (PREDNISOLONE SODIUM PHOS*07/30/2015 4 - Hives Date Reviewed: 08/18/2022 Reviewed by: Deedee German LPN - Fully Assessed Reason for Visit: Results [95] Prescriptions as of 08/19/2022 - VENTOLIN HFA 90 mcg/actuation inhaler Inhale 2 Puffs as instructed every 4 hours as needed for wheezing/shortness of breath. Meds Comments as of 07/30/2015: All medications have been reviewed today/July 09, 2007 Carmela Hernandez [facility] Problem List As Of Date 08/19/2022 Noted Resolved Allergic rhinitis [J30.9] 07/30/2015 Encounter Status:Closed by DEEDEE GERMAN on 08/19/22 [facility] CBC panel Auto (Bld)on 08-18 Erythrocyte distribution width (RBC) [Ratio] 13.4 % 11.5 - 15.0 % [facility] Hematocrit (Bld) [Volume fraction] 42.1 % 36.0 - 46.0 % [facility] Hemoglobin (Bld) [Mass/Vol] 13.8 g/dL 11.5 - 15.5 g/dL [facility] MCH (RBC) [Entitic mass] 28.9 pg 26.0 - 34.0 pg [facility] MCHC (RBC) [Mass/Vol] 32.8 g/dL 30.5 - 36.0 g/dL [facility] MCV (RBC) [Entitic vol] 88.3 fL 80.0 - 100.0 fL [facility] Nucleated RBC (Bld) [#/Vol] <0.01 k/uL [facility] Platelet mean volume (Bld) [Entitic vol] 9.0 fL 9.0 - 12.7 fL [facility] Platelets (Bld) [#/Vol] 259 10*3/uL 150 - 400 k/uL [facility] RBC (Bld) [#/Vol] 4.77 10*6/uL 3.90 - 5.2 0 m/uL [facility] WBC (Bld) [#/Vol] 6.46 10*3/uL 3.70 - 11. 00 k/uL [facility] Erythrocyte distribution width (RBC) [Ratio] 13.4 % Normal 11.5-15.0 [facility] Comment on above: Order Comment: Speci men Type: BLOOD SPECIMEN Ordering Facility: [facility] Address: [address] [place] [address] Performed By: #### 2 4323-8, 3016-3 #### [facility] CLIA [id number] [address] [place] [id number] [place] [facility] Hematocrit (Bld) [Volume fraction] 42.1 % Normal 36.0-46.0 [facility] Comment on above: Order Comment: Speci men Type: BLOOD SPECIMEN Ordering Facility: [facility] Address: [address] [place] [id number] Performed By: #### 2 4323-8, 3016-3 #### [facility] CLIA [id number] [address] [place] [address] [place] Hemoglobin (Bld) [Mass/Vol] 13.8 g/dL Normal 11.5-15.5 [facility] Comment on above: Order Comment: Speci men Type: BLOOD SPECIMEN Ordering Facility: [facility] Address: [address] [place] [address] Performed By: #### 2 4323-8, 3016-3 #### [facility] CLIA [id number] [address] [place] [address] [place] MCH (RBC) [Entitic mass] 28.9 pg Normal 26.0-34.0 [facility] Comment on above: Order Comment: Speci men Type: BLOOD SPECIMEN Ordering Facility: [facility] Address: [address] [place], [place] [id number] Performed By: #### 2 4323-8, 3016-3 #### [facility] CLIA [id number] [address] [place] [address] [place] MCHC (RBC) [Mass/Vol] 32.8 g/dL Normal 30.5-36.0 [facility] Comment on above: Order Comment: Speci men Type: BLOOD SPECIMEN Ordering Facility: [facility] Address: [address] [place] [address] Performed By: #### 2 4323-8, 3016-3 #### [facility] CLIA [id number] [address] [place] [address] [place] MCV (RBC) [Entitic vol] 88.3 fL Normal 80.0-100.0 [facility] Comment on above: Order Comment: Speci men Type: BLOOD SPECIMEN Ordering Facility: [facility] Address: [address] [place] [address] Performed By: #### 2 4323-8, 3016-3 #### [facility] CLIA [id number] [address] [id number] [address] [place] Nucleated RBC (Bld) [#/Vol] 10*3/uL Normal <0.01 [facility] Comment on above: Order Comment: Speci men Type: BLOOD SPECIMEN Ordering Facility: [facility] Address: [address] [place] [id number] Performed By: #### 2 4323-8, 3016-3 #### [facility] CLIA [id number] [address] [place] [address] [place] Platelet mean volume (Bld) [Entitic vol] 9.0 fL Normal 9.0-12.7 [facility] Comment on above: Order Comment: Speci men Type: BLOOD SPECIMEN Ordering Facility: [facility] Address: [address] [place], [place] [id number] Performed By: #### 2 4323-8, 3016-3 #### [facility] CLIA [id number] [address] [place] [address] [place] Platelets (Bld) [#/Vol] 259 10*3/uL Normal 150-400 [facility] Comment on above: Order Comment: Speci men Type: BLOOD SPECIMEN Ordering Facility: [facility] Address: [address] [place], [place] [phone] Performed By: #### 2 4323-8, 3016-3 #### [facility] CLIA [id number] [address] [place] [address] [place] RBC (Bld) [#/Vol] 4.77 10*6/uL Normal 3.90-5.20 [facility] Comment on above: Order Comment: Speci men Type: BLOOD SPECIMEN Ordering Facility: [facility] Address: [address] [place], [place] [phone] Performed By: #### 2 4323-8, 3016-3 #### [facility] CLIA [id number] [address] [place] [address] [place] WBC (Bld) [#/Vol] 6.46 10*3/uL Normal 3.70-11.00 [facility] Comment on above: Order Comment: Speci men Type: BLOOD SPECIMEN Ordering Facility: [facility] Address: [address] [place] [phone] Performed By: #### 2 4323-8, 3016-3 #### [facility] CLIA [id number] [address] [place] [address] [id number] [place], [place] [id number] [facility] CNOVon 08-18-2022 CNOV Office Visit (FAMPWS) ---- IDANIA RUST ([id number]) 1 F Date Time Provider Department 08/18/22 10:00 AM JULISSA MCCRAY During your visit today, we recorded the following information about you: Pulse Respiration Blood pressure Weight 71/minute 16/minute 108/72 57.4 kg Julissa Mccray APRN.CNP 08/18/2022 12:16 PM Signed 08/18/2022 Patient presents with: Transition Of Care SUBJECTIVE: This is a 17 year old that is here today for Above Complaints.. 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 Since COVID-19 last year has had some racing heart issues. Notices it mostly about two weeks before her menstrual cycle. Also feels heart races when going up stairs at times. When she gets them last a few minutes. Admits to SOB with them but thinks maybe that is because it scares her. Denies accompanying diaphoresis, dizziness, lightheadedness, dyspnea, cough, chest pain, jaw/back pain, or nausea. Runs about two miles a day. Does not have any issues when she runs or after. Past medical, surgical, family, social hx, medications, allergies and health maintenance reviewed and updated PAST MEDICAL HISTORY Diagnosis Date Broken fibula 07/2016 Menstrual periods irregular 03/26/2018 NEGATIVE MEDICAL HISTORY 03/2008 Normal Color Vision ALLERGIES Orapred [Prednisolone Sodium Phosphate] MEDICATIONS Current Outpatient Medications Medication Sig VENTOLIN HFA 90 mcg/actuation inhaler Inhale 2 Puffs as instructed every 4 hours as needed for wheezing/shortness of breath. No current facility-administer ed medications for this visit. Medications and allergies reviewed by this provider. SOCIAL HISTORY Social History Tobacco Use Smoking status: Never Smokeless tobacco: Never Substance Use Topics Alcohol use: No Drug use: No REVIEW OF SYSTEMS GENERAL: No weight loss, malaise or fevers HEENT: Negative for frequent or significant headaches, No changes in hearing or vision, no nose bleeds or other nasal problems NECK: Negative for lumps, goiter, pain and significant neck swelling RESPIRATORY: Negative for cough, hemoptysis, wheezing, COPD, dyspnea or shortness of breath CARDIOVASCULAR: Negative for chest pain, leg swelling, hypertension, CHF GI: No nausea, vomiting, or diarrhea : No history of dysuria, frequency or incontinence ARCHITECT MANAGER: Negative for abnormal vaginal bleeding, abnormal vaginal discharge MUSCULOSKELETAL: Negative for joint pain or swelling, back pain or muscle pain SKIN: Negative for lesions, rash, and itching PSYCH: Negative for sleep disturbance, mood disorder and recent psychosocial stressors HEMATOLOGY/LYMPHOLO GY: Negative for prolonged bleeding, bruising easily or swollen nodes ENDOCRINE: Negative for cold or heat intolerance, polyuria, polydipsia and goiter NEURO: No history of headaches, syncope, paralysis, seizures or tremors OBJECTIVE: BP 108/72 Pulse 71 Resp 16 Wt 57.4 kg (126 lb 9.6 oz) LMP 06/01/2021 SpO2 100% . Vital signs reviewed by this provider. APPEARANCE Well appearing, alert, in no acute distress, well-hydrated, well nourished. EYES PERRLA, conjunctiva and sclera normal. EARS External ears normal, canals clear NECK Supple, no adenopathy; thyroid symmetric, normal size, no bruits HEART RRR with normal S1 and S2, no murmurs, no gallops, no JVD appreciated LUNG clear to auscultation. No wheezes, rhonchi or rales EXTREMITIES Extremities normal, No deformities, No skin discoloration, and No edema SKIN Skin color, texture, turgor normal, no suspicious rashes or lesions to exposed skin INFLUENZA(1) due on 05/08/2023 GC (GONORRHEA) SCREENING (18-24) due on 08/18/2023 MENINGOCOCCAL B: Consider based on risk(1 of 2 - Risk Bexsero 2-dose series) due on 08/18/2023 HEPATITIS C SCREENING due on 08/18/2023 HIV SCREENING due on 08/18/2023 COVID-19 VACCINE(1) due on 08/18/2023 CHLAMYDIA SCREENING (18-24) due on 08/18/2023 DTAP,TDAP,TD(7 - Td or Tdap) due on 04/26/2024 HEPATITIS B Completed HPV VACCINE Completed MENINGOCOCCAL CONJUGATE Completed DEPRESSION ASSESSMENT Completed ASSESSMENT/PLAN: 1. Routine physical examination - ICD9: V70.0, ICD10: Z00.00 (primary diagnosis) - Counseled on healthy diet and regular exercise - Depression screening tool completed and reviewed with patient. Based on score and interview, patient is not at risk for depression and recommended no further intervention at this time. - Follow up for annual exam in one year 2. Racing heart beat - ICD9: 785.0, ICD10: R00.0 - no red flag symptoms or exam findings - red flag symptoms discussed, verbalizes understanding - TSH BLD - COMP METABOLIC PANEL - CBC - ECG COMPLETE EKG Interpretation: RHYTHM: Normal sinus rhythm at 63 beats per minute with marked sinus arrhythmia AXIS: Normal axis INTERVALS: Normal MN interval QRS COMPLEX: Normal (more content not included)... Normal [facility] Comprehensive metabolic 2000 panelon 08-18-2022 Albumin [Mass/Vol] 4.9 g/dL Normal 3.9-4.9 [facility] Comment on above: Order Comment: Speci men Type: BLOOD SPECIMEN Ordering Facility: [facility] Address: [address] [place], [place] [phone] Performed By: #### 2 4323-8, 3016-3 #### [facility] CLIA [id number] [address] [place] [address] [place] ALP [Catalytic activity/Vol] 85 U/L Normal 34-123 [facility] Comment on above: Order Comment: Speci men Type: BLOOD SPECIMEN Ordering Facility: [facility] Address: [address] [place], [place] [phone] Performed By: #### 2 4323-8, 3016-3 #### [facility] CLIA [id number] [address] [place] [address] [place] ALT [Catalytic activity/Vol] 22 U/L Normal 7-38 [facility] Comment on above: Order Comment: Speci men Type: BLOOD SPECIMEN Ordering Facility: [facility] Address: [address] [place] [address] Performed By: #### 2 4323-8, 3016-3 #### [facility] CLIA [id number] [address] [place] [address] [place] Anion gap [Moles/Vol] 11 mmol/L Normal 9-18 [facility] Comment on above: Order Comment: Speci men Type: BLOOD SPECIMEN Ordering Facility: [facility] Address: [address] [place] [address] Performed By: #### 2 4323-8, 3015-3 #### [facility] CLIA [id number] [address] [place] [address] [place] AST [Catalytic activity/Vol] 30 U/L Normal 13-35 [facility] Comment on above: Order Comment: Speci men Type: BLOOD SPECIMEN Ordering Facility: [facility] Address: [address] [place] [address] Performed By: #### 2 4323-8, 6-3 #### [facility] CLIA [id number] [address] [place] [address] [place] Bilirubin [Mass/Vol] 0.5 mg/dL Normal 0.2-1.3 [facility] Comment on above: Order Comment: Speci men Type: BLOOD SPECIMEN Ordering Facility: [facility] Address: [address] [place] [address] Performed By: #### 2 4323-8, 3016-3 #### [facility] CLIA [id number] [address] [place] [address] [place] Calcium [Mass/Vol] 10.0 mg/dL Normal 8.5-10.2 [facility] Comment on above: Order Comment: Speci men Type: BLOOD SPECIMEN Ordering Facility: [facility] Address: [address] [place], [place] [phone] Performed By: #### 2 4323-8, 3016-3 #### [facility] CLIA [id number] [address] [place] [address] [place] Chloride [Moles/Vol] 106 mmol/L High 97-105 [facility] Comment on above: Order Comment: Speci men Type: BLOOD SPECIMEN Ordering Facility: [facility] Address: [address] [place] [address] Performed By: #### 2 4323-8, 6-3 #### [facility] CLIA [id number] [address] [place] [address] [place] CO2 [Moles/Vol] 25 mmol/L Normal 22-30 [facility] Comment on above: Order Comment: Speci men Type: BLOOD SPECIMEN Ordering Facility: [facility] Address: [address] [place], [place] [phone] Performed By: #### 2 4323-8, 3016-3 #### [facility] CLIA [id number] [address] [place] [address] [place] Creatinine [Mass/Vol] 0.64 mg/dL Normal 0.58-0.96 [facility] Comment on above: Order Comment: Speci men Type: BLOOD SPECIMEN Ordering Facility: [facility] Address: [address] [place], [place] [phone] Performed By: #### 2 4323-8, 3016-3 #### [facility] CLIA [id number] [address] [place] [address] [place] ESTIMATED GLOMERULAR FILTRATION RATE 131 mL/min/1.73m??? Normal >=60 [facility] Comment on above: Order Comment: Milind esparza Type: BLOOD SPECIMEN Ordering Facility: [facility] Address: [address] [place] [address] Result Comment: Anna mated Glomerular Filtration Rate (eGFR) is calculated using the 2020 CKD-EPI creatinine equation. This equation utilizes serum creatinine, sex, and age as parameters. The creatinine assay has traceable calibration to isotope dilution-mass spectrometry. Refer to KDIGO guidelines for clinical interpretation. In patients with unstable renal function, e.g. those with acute kidney injury, the eGFR may not accurately reflect actual GFR. Performed By: #### 2 4323-8, 3016-3 #### [facility] CLIA [id number] [address] [place] [address] [place] Glucose [Mass/Vol] 88 mg/dL Normal 74-99 [facility] Comment on above: Order Comment: Milind esparza Type: BLOOD SPECIMEN Ordering Facility: [facility] Address: [address] [place] [address] Result Comment: The [place] Diabetes Association (ADA) provides guidance for cutoff values for fasting glucose and random glucose. The ADA defines fasting as no caloric intake for at least 8 hours. Fasting plasma glucose results between 100 to 125 mg/dL indicate increased risk for diabetes (prediabetes). Fasting plasma glucose results greater than or equal to 126 mg/dL meet the criteria for diagnosis of diabetes. In the absence of unequivocal hyperglycemia, results should be confirmed by repeat testing. In a patient with classic symptoms of hyperglycemia or hyperglycemic crisis, random plasma glucose results greater than or equal to 200 mg/dL meet the criteria for diagnosis of diabetes. Reference: Standards of Medical Care in Diabetes 2016, [place] Diabetes Association. Diabetes Care. 2016.39(Suppl 1). Performed By: #### 2 4323-8, 3016-3 #### [facility] CLIA [id number] [address] [place] [address] [place] Potassium [Moles/Vol] 4.7 mmol/L Normal 3.7-5.1 [facility] Comment on above: Order Comment: Milind esparza Type: BLOOD SPECIMEN Ordering Facility: [facility] Address: [address] [place], [place] [phone] Performed By: #### 2 4323-8, 3016-3 #### [facility] CLIA [id number] [address] [place] [address] [place] Protein [Mass/Vol] 7.5 g/dL Normal 6.3-8.0 [facility] Comment on above: Order Comment: Speci men Type: BLOOD SPECIMEN Ordering Facility: [facility] Address: [address] [place], [place] [phone] Performed By: #### 2 4323-8, 6-3 #### [facility] CLIA [id number] [address] [place] [address] [place] Sodium [Moles/Vol] 142 mmol/L Normal 136-144 [facility] Comment on above: Order Comment: Speci men Type: BLOOD SPECIMEN Ordering Facility: [facility] Address: [address] [place], [place] [phone] Performed By: #### 2 4323-8, 6-3 #### [facility] CLIA [id number] [address] [place] [address] [place] Urea nitrogen [Mass/Vol] 8 mg/dL Normal 7-21 [facility] Comment on above: Order Comment: Speci men Type: BLOOD SPECIMEN Ordering Facility: [facility] Address: [address] [place], [place] [phone] Performed By: #### 2 4323-8, 6-3 #### [facility] CLIA [id number] [address] [place] [address] [place] ECG COMPLETEon 08-18-2022 ECG COMPLETE Ventricular Rate : 63 BPM Atrial Rate : 63 BPM P-R Interval : 174 ms QRS Duration : 80 ms Q-T Interval : 400 ms QTC Calculation(Bazett) : 409 ms Calculated P Cromwell : 41 degrees Calculated R Cromwell : 79 degrees Calculated T Cromwell : 58 degrees SINUS RHYTHM WITH MARKED SINUS ARRHYTHMIA OTHERWISE NORMAL ECG Confirmed by SACHIN M.D., MADELINE ([id number]) on 08/20/2022 4:01:32 PM NAME : IDANIA RUST PID : [id number] : 2005 Gender : Female Race : ORD : [id number] Procedure Date : Aug 18 2022 10:48:59 Edit Date : Aug 20 2022 16:01:37 Diagnosis: SINUS RHYTHM WITH MARKED SINUS ARRHYTHMIA OTHERWISE NORMAL ECG Confirmed by MADELINE STEPHENSON M.D. ([id number]) on 08/20/2022 4:01:32 PM Test Reason : Location : [address] : [facility] Overread By : MADELINE STEPHENSON M.D. Edited By : MADELINE STEPHENSON M.D. Referred By : JULISSA MCCRAY Acquired by : Yamilet LOVETT [facility] TSH SerPl-aCncon 08-18-2022 TSH Qn 1.020 m[IU]/L Normal 0.510-4.300 [facility] Comment on above: Order Comment: Speci men Type: BLOOD SPECIMEN Ordering Facility: [facility] Address: [address] [place] [phone] Result Comment: If t he patient is , TSH reference range varies by gestational period: First Trimester (weeks 9-12): 0.180-2.990 mIU/L Second Trimester: 0.110-3.980 mIU/L Third Trimester: 0.480-4.710 mIU/L Aureliano Pacheco et al. A Practical Approach for the Verifications and Determination of Site- and Trimester-Specific Reference Intervals for Thyroid Function tests in . Thyroid, 2019:29:3:412-420. Leighton E, et al. 2017 Guidelines of the [place] Thyroid Association for the Diagnosis and Management of Thyroid Disease during and the . Thyroid, 2017:27:3:315-389. Reference ranges were not locally established for this patient's age group. The normal values are based on the following source: Michelle Post, Vickey Pablo. Reference Ranges for Adults and Children: Pre-analytical Considerations. [facility] Performed By: #### 2 4323-8, 3016-3 #### [facility] CLIA [id number] [address] [place] [id number] [place] Office Visiton 05-07-2017 Documentation of current medications (procedure) Done Invalid Interpretation Code [facility] Work Phone: Documentation of current medications (procedure) T Invalid Interpretation Code [facility] Work Phone: Protein mass conc [facility] Work [facility]: Protein mass conc T [facility] Work Phone: Tobacco smoking status NHIS Never Invalid Interpretation Code [facility] Work Phone: Tobacco smoking status NHIS Never smoker [facility] Work Phone: Tobacco use CPHS Never smoker Invalid Interpretation Code [facility] Work Phone: Office Visiton 03-03-2017 Protein mass conc Done [facility] Work Phone: Protein mass conc T [facility] Work Phone: Tobacco smoking status NHIS Never [facility] Work Phone: Tobacco smoking status NHIS Never smoker [facility] Work Phone: Vital Signs Date Time Vital Sign Value Performing Clinician Francy roche 05-27-2023 11:20-0400 Body temperature 98.4 [degF] Eileen Abel OPTICAL DISPENSER.SOCIAL WORK ASSISTANT Work Phone: [facility] 05-27-2023 11:20-0400 Body weight 60.96 kg Eileen Abel OPTICAL DISPENSER.SOCIAL WORK ASSISTANT Work Phone: [facility] 05-27-2023 11:20-0400 Diastolic blood pressure 78 mm[Hg] Eileen Abel OPTICAL DISPENSER.SOCIAL WORK ASSISTANT Work Phone: [facility] 05-27-2023 11:20-0400 Heart rate 71 /min Eileen Abel OPTICAL DISPENSER.SOCIAL WORK ASSISTANT Work Phone: [facility] 05-27-2023 11:20-0400 Respiratory rate 18 /min Eileen Abel OPTICAL DISPENSER.SOCIAL WORK ASSISTANT Work Phone: [facility] 05-27-2023 11:20-0400 SaO2% (BldA) [Mass fraction] 100 % Eileen Abel OPTICAL DISPENSER.SOCIAL WORK ASSISTANT Work Phone: [facility] 05-27-2023 11:20-0400 Systolic blood pressure 122 mm[Hg] Eileen Abel OPTICAL DISPENSER.SOCIAL WORK ASSISTANT Work Phone: [facility] 03-23-2023 07:58-0400 Body temperature 98.29 [degF] Brendon Roger MD Work Phone: [facility] 03-23-2023 07:58-0400 Body weight 62.14 kg Brendon Roger MD Work Phone: [facility] 03-23-2023 07:58-0400 Diastolic blood pressure 64 mm[Hg] Brendon Roger MD Work Phone: [facility] 03-23-2023 07:58-0400 Heart rate 98 /min Brendon Roger MD Work Phone: [facility] 03-23-2023 07:58-0400 Respiratory rate 16 /min Brendon Roger MD Work Phone: [facility] 03-23-2023 07:58-0400 SaO2% (BldA) [Mass fraction] 99 % Brendon Roger MD Work Phone: [facility] 03-23-2023 07:58-0400 Systolic blood pressure 102 mm[Hg] Brendon Roger MD Work Phone: [facility] 10-30-2022 16:10-0500 Body temperature 98.2 [degF] Julissa Garrison OPTICAL DISPENSER.SOCIAL WORK ASSISTANT Work Phone: [facility] 10-30-2022 16:10-0500 Body weight 58.42 kg Julissa Garrison OPTICAL DISPENSER.SOCIAL WORK ASSISTANT Work Phone: [facility] 10-30-2022 16:10-0500 Diastolic blood pressure 82 mm[Hg] Julissa Callow OPTICAL DISPENSER.SOCIAL WORK ASSISTANT Work Phone: [facility] 10-30-2022 16:10-0500 Heart rate 104 /min Julissa Callow OPTICAL DISPENSER.SOCIAL WORK ASSISTANT Work Phone: [facility] 10-30-2022 16:10-0500 Respiratory rate 18 /min Julissa Callow OPTICAL DISPENSER.SOCIAL WORK ASSISTANT Work Phone: [facility] 10-30-2022 16:10-0500 SaO2% (BldA) [Mass fraction] 99 % Julissa Callow OPTICAL DISPENSER.SOCIAL WORK ASSISTANT Work Phone: [facility] 10-30-2022 16:10-0500 Systolic blood pressure 130 mm[Hg] Julissa Callow OPTICAL DISPENSER.SOCIAL WORK ASSISTANT Work Phone: [facility] 08-18-2022 10:09-0400 Body weight 57.42 kg Julissa Podlogar OPTICAL DISPENSER.SOCIAL WORK ASSISTANT Work Phone: [facility] 08-18-2022 10:09-0400 Diastolic blood pressure 72 mm[Hg] Julissa Podlogar OPTICAL DISPENSER.SOCIAL WORK ASSISTANT Work Phone: [facility] 08-18-2022 10:09-0400 Heart rate 71 /min Julissa Podlogar OPTICAL DISPENSER.SOCIAL WORK ASSISTANT Work Phone: [facility] 08-18-2022 10:09-0400 Respiratory rate 16 /min Julissa Podlogar OPTICAL DISPENSER.SOCIAL WORK ASSISTANT Work Phone: [facility] 08-18-2022 10:09-0400 SaO2% (BldA) [Mass fraction] 100 % Julissa Podlogar OPTICAL DISPENSER.SOCIAL WORK ASSISTANT Work Phone: [facility] 08-18-2022 10:09-0400 Systolic blood pressure 108 mm[Hg] Julissa Podlogar OPTICAL DISPENSER.SOCIAL WORK ASSISTANT Work Phone: [facility] Encounters Encounter Date Encounter Type Care Provider Facility Start: 10-29-2023 End: 10-29-2023 [facility] Facility:[facility] Start: 05-27-2023 End: 05-27-2023 ambulatory [facility] Facility:[facility] Start: 05-27-2023 End: 05-27-2023 Subsequent hospital visit by physician Beryl [facility] Work Phone: Radiology Comment on above: Foot pain, left [[id number] .[id number]] Start: 05-27-2023 End: 05-27-2023 Patient encounter procedure Eileen Abel APRN.SOCIAL WORK ASSISTANT Work Phone: [facility] Comment on above: Foot pain, left (Serena tisha Dx); Contusion of left foot, initial encounter Start: 04-29-2023 End: 04-29-2023 ambulatory [facility] Facility:[facility] Start: 04-13-2023 End: 04-13-2023 ambulatory [facility] Facility:[facility] Start: 03-23-2023 End: 03-23-2023 ambulatory [facility] Facility:[facility] Start: 03-23-2023 End: 03-23-2023 Patient encounter procedure Brendon Roger MD Work Phone: [facility] Comment on above: Acute non-recurrent sinusitis, unspecified location (Primary Dx); Wheezing Start: 11-24-2022 End: 11-24-2022 ambulatory [facility] Facility:[facility] Start: 10-30-2022 End: 10-30-2022 ambulatory [facility] Facility:[facility] Start: 10-30-2022 End: 10-30-2022 Patient encounter procedure Julissa Garrison APRN.CNP Work Phone: [facility] Comment on above: Cough, unspecified t ype (Primary Dx) Start: 08-19-2022 Telephone encounter Julissa gutierrez APRN.CNP Work Phone: [facility] [place] Comment on above: Results Start: 08-18-2022 End: 08-18-2022 ambulatory [facility] Facility:[facility] Start: 08-18-2022 End: 08-18-2022 Patient encounter procedure Julissa Mccray APRN.CNP Work Phone: Family Medicine [place] Comment on above: Routine physical exa mination (Primary Dx); Racing heart beat; Encounter to establish care Start: 08-18-2022 End: 08-18-2022 Physical examination Julissa Mccray APRN.SOCIAL WORK ASSISTANT Work Phone: [facility] [place] Start: 03-25-2022 Refill Judith Jara ed, MD Work Phone: [facility] [place] Comment on above: Refill Request Medication Problem Procedures Date Procedure Procedure Detail Performing Clinician Start: 05-27-2023 Radex foot complete minimum 3 views Eileen Abel OPTICAL DISPENSER.SOCIAL WORK ASSISTANT Work Phone: Start: 06-03-2021 Adult depression screening assessment Judith Starr MD Work Phone: Plan of Treatment Date Care Activity Detail Author Start: 07-10-2024 Covid-19 Vaccine () Covid-19 Vaccine () [facility] Start: 07-10-2024 Influenza vaccination Influenza Vacc ine (#1) [facility] Start: 04-26-2024 Urine microalbumin profile [facility] Start: 2024 Screening for malign ant neoplasm of cervix Cervical Cancer Screening [facility] Start: 08-18-2023 CHLAMYDIA SCREENING (18-24) CHLAMYDIA SCREENING (18-24) [facility] Comment on above: Postponed from 03/14 (Declined at this time) Start: 08-18-2023 COVID-19 VACCINE (#1) COVID-19 VACCI NE (#1) [facility] Comment on above: Postponed from 09/14 (Declined at this time) Start: 08-18-2023 GC (GONORRHEA) SCREENING (18-24) GC (GONORRHEA) SCREENING (18-24) [facility] Comment on above: Postponed from 03/14 (Declined at this time) Start: 08-18-2023 HEPATITIS C SCREENING HEPATITIS C [facility] Comment on above: Postponed from 03/14 (Declined at this time) Start: 08-18-2023 HIV SCREENING HIV SCREENING [facility] Comment on above: Postponed from 03/14 (Declined at this time) Start: 08-18-2023 MENINGOCOCCAL B: Consider based on risk (1 of 2 - Patient Seeks Protection) MENINGOCOCCAL B: Consider based on risk (1 of 2 - Patient Seeks Protection) [facility] Comment on above: Postponed from 03/14 (Declined at this time) Start: 08-18-2023 MENINGOCOCCAL B: Consider based on risk (1 of 2 - Risk Bexsero 2-dose series) MENINGOCOCCAL B: Consider based on risk (1 of 2 - Risk Bexsero 2-dose series) [facility] Comment on above: Postponed from 03/14 (Declined at this time) Start: 07-10-2023 Influenza vaccination C [facility] Start: 05-08-2023 Influenza vaccination INFLUENZA (#1) [facility] Comment on above: Postponed from 07/10 (Declined at this time) Start: 11-09-2022 DEPRESSION ASSESSMENT DEPRESSION ASS ESSMENT [facility] Start: 08-18-2022 End: 10-18-2022 Comprehensive metabolic 2000 panel - Serum or Plasma [facility] Work Phone: Comment on above: Expected: 08/18/2022 , Expires: 10/18/2022 Start: 08-18-2022 End: 10-18-2022 Thyrotropin [Units/volume] in Serum or Plasma [facility] Work Phone: Comment on above: Expected: 08/18/2022 , Expires: 10/18/2022 Start: 07-10-2022 Influenza vaccination INFLUENZ A (Season Ended) [facility] Start: 06-03-2022 Adult depression screening assessment DEPRESSION SCREENING [facility] Start: 2021 Anxiety Screening Anxiety Screening [facility] Start: 2021 CHLAMYDIA SCREENING (18-24) CHLAMYDIA SCREENING (18-24) [facility] Start: 2021 Depression Screening Depression Scre ening [facility] Start: 2021 GC (GONORRHEA) SCREENING (18-24) GC (GONORRHEA) SCREENING (18-24) [facility] Start: 2021 HEPATITIS C SCREENING HEPATITIS C [facility] Start: 05-06-2021 Hepatitis C screening Hepatitis C Sc kathyning [facility] Start: 2021 HIV SCREENING HIV SCREENING [facility] Start: 2021 HIV screening HIV Screening [facility] Start: 2021 Screening for Chlamy yoandy trachomatis Chlamydia Screening (18-24) [facility] Start: 2019 Meningococcal B Vaccine: Consider Based On Risk (1 of 2 - Patient Seeks Protection) Meningococcal B Vaccine: Consider Based On Risk (1 of 2 - Patient Seeks Protection) [facility] Start: 05-07-2017 End: 05-07-2017 Appointment Appointment [facility] Work Phone: Start: 2017 PEDS TO ADULT TRANSITION ANNUAL ASSESSMENT PEDS TO ADULT TRANSITION ANNUAL ASSESSMENT [facility] Start: 03-04-2017 End: 03-04-2017 Physical Therapy General Physical Therapy [facility], [address] [place] [address], [facility] Work Phone: Start: 03-03-2017 End: 03-03-2017 X-ray exam of ankle X-Ray, Ankle [facility] Work Phone: Start: 2013 MENINGOCOCCAL B: Consider based on risk (1 of 2 - Risk Bexsero 2-dose series) MENINGOCOCCAL B: Consider based on risk (1 of 2 - Risk Bexsero 2-dose series) [facility] Start: 2008 COVID-19 VACCINE (#1) COVID-19 VACCI NE (#1) [facility] End: 08-18-2023 ECG COMPLETE ECG COMPLETE ECG Routine Racing heart beat 1 Occurrences starting 08/18/2022 until 08/18/2023 [facility] Work Phone: Comment on above: 1 Occurrences starti ng 08/18/2022 until 08/18/2023 Influenza virus A an d B RNA and SARS-CoV-2 (COVID-19) N gene panel - Respiratory specimen by SONJA with probe detection COVID WITH FLUA+B, ROUTINE Microbiology Routine Cough, unspecified type Ordered: 10/30/2022 [facility] Work Phone: Comment on above: Ordered: 10/30/2022 Immunizations Immunization Date Immunization Notes Care Provider Sherine rodriguez 05-05-2019 meningococcal polysaccharide (groups A, C, Y and W-135) diphtheria toxoid conjugate vaccine (MCV4P) Judith Starr MD Work Phone: [facility] 04-12-2018 Human Papillomavirus 9-valent vaccine Judith Starr MD Work Phone: [facility] 07-23-2017 Human Papillomavirus 9-valent vaccine Judith Starr MD Work Phone: [facility] 07-23-2017 influenza, injectabl e, quadrivalent, contains preservative Judith Starr MD Work Phone: [facility] 07-23-2017 influenza virus vacc ine, unspecified formulation Xr [place] Work Phone: [facility] 08-05-2016 influenza, injectabl e, quadrivalent, contains preservative Judith Starr MD Work Phone: [facility] 07-30-2015 influenza, injectabl e, quadrivalent, contains preservative Judith Starr MD Work Phone: [facility] 08-16-2014 influenza, seasonal, injectable Judith Starr MD Work Phone: [facility] Work Phone: 04-26-2014 meningococcal polysaccharide (groups A, C, Y and W-135) diphtheria toxoid conjugate vaccine (MCV4P) Judith Starr MD Work Phone: [facility] 04-26-2014 tetanus toxoid, redu max diphtheria toxoid, and acellular pertussis vaccine, adsorbed Judith Starr MD Work Phone: [facility] 09-24-2013 influenza virus vacc ine, live, attenuated, for intranasal use Judith Starr MD Work Phone: [facility] 08-14-2012 influenza virus vacc ine, live, attenuated, for intranasal use Judith Starr MD Work Phone: [facility] 08-16-2011 influenza virus vacc ine, live, attenuated, for intranasal use Judith Starr MD Work Phone: [facility] Work Phone: 09-14-2010 influenza virus vacc ine, live, attenuated, for intranasal use Judith Starr MD Work Phone: [facility] Work Phone: 08-27-2009 influenza virus vacc ine, live, attenuated, for intranasal use Judith Starr MD Work Phone: [facility] 03-30-2009 varicella virus vaccine Gina Starr MD Work Phone: [facility] Work Phone: 01-27-2008 diphtheria, tetanus toxoids and acellular pertussis vaccine Judith Starr MD Work Phone: [facility] Work Phone: 01-27-2008 measles, mumps and rubella virus vaccine Judith Starr MD Work Phone: [facility] Work Phone: 01-27-2008 poliovirus vaccine, inactivated Judith Starr MD Work Phone: [facility] Work Phone: 09-15-2007 influenza virus vacc ine, unspecified formulation Judith Starr MD Work Phone: [facility] Work Phone: 09-16-2004 diphtheria, tetanus toxoids and acellular pertussis vaccine Judith Starr MD Work Phone: [facility] Work Phone: 09-16-2004 influenza virus vacc ine, unspecified formulation Judith Starr MD Work Phone: [facility] Work Phone: 09-16-2004 pneumococcal conjuga te vaccine, 7 valent Judith Starr MD Work Phone: [facility] Work Phone: 2004 haemophilus influenz ae type b vaccine, HbOC conjugate Judith Starr MD Work Phone: [facility] Work Phone: 2004 measles, mumps and rubella virus vaccine Judith Starr MD Work Phone: [facility] Work Phone: 2004 varicella virus vaccine Gina Starr MD Work Phone: [facility] Work Phone: 2003 hepatitis B vaccine, pediatric or pediatric/adolescent dosage Judith Starr MD Work Phone: [facility] 2003 poliovirus vaccine, inactivated Judith Starr MD Work Phone: [facility] Work Phone: 2003 influenza virus vacc ine, unspecified formulation Judith Starr MD Work Phone: [facility] Work Phone: 2003 diphtheria, tetanus toxoids and acellular pertussis vaccine Judith Starr MD Work Phone: [facility] Work Phone: 2003 haemophilus influenz ae type b vaccine, HbOC conjugate Judith Starr MD Work Phone: [facility] Work Phone: 2003 influenza virus vacc ine, unspecified formulation Judith Starr MD Work Phone: [facility] Work Phone: 2003 pneumococcal conjuga te vaccine, 7 valent Judith Starr MD Work Phone: [facility] Work Phone: 2003 diphtheria, tetanus toxoids and acellular pertussis vaccine Judith Starr MD Work Phone: [facility] Work Phone: 2003 haemophilus influenz ae type b vaccine, HbOC conjugate Judith Starr MD Work Phone: [facility] Work Phone: 2003 pneumococcal conjuga te vaccine, 7 valent Judith Starr MD Work Phone: [facility] Work Phone: 2003 poliovirus vaccine, inactivated Judith Starr MD Work Phone: [facility] Work Phone: 2003 diphtheria, tetanus toxoids and acellular pertussis vaccine Judith Starr MD Work Phone: [facility] Work Phone: 2003 haemophilus influenz ae type b vaccine, HbOC conjugate Judith Starr MD Work Phone: [facility] Work Phone: 2003 pneumococcal conjuga te vaccine, 7 valent Judith Starr MD Work Phone: [facility] Work Phone: 2003 poliovirus vaccine, inactivated Judith Starr MD Work Phone: [facility] Work Phone: 2003 hepatitis B vaccine, pediatric or pediatric/adolescent dosage Judith Starr MD Work Phone: [facility] Work Phone: 2003 hepatitis B vaccine, pediatric or pediatric/adolescent dosage Judith Starr MD Work Phone: [facility] Work Phone: Payers Date Payer Category Payer Self-pay 2018 Unknown [employer] [id number] 2018-Present [phone] [address] [place] [address] PPO [id number] 2018 Unknown [employer] P[employer] [id number] 2018-Present [phone] [address] [place] [address] PPO [id number] 2018 Unknown [id number] Unknown [id number] Unknown [id number] Unknown [id number] Unknown [id number] Social History Date Type Detail Facility Start: 07-30-2015 Tobacco smoking stat [facility] Never smoked tobacco [facility] Work Phone: Start: 06-03-2021 End: 05-27-2023 Alcohol intake Current non-drinker of alcohol (finding) [facility] Start: 2003 Sex Assigned At Not on file [facility] Start: 07-30-2015 Tobacco use and exposure Smokeless tobacco non-user [facility] Start: 10-17-2020 End: 05-27-2023 History of Social function [facility] Work Phone: Start: 10-17-2020 End: 05-27-2023 Tobacco use panel [facility] Work Phone: Adult Depression Screening Assessment 0 [facility] Work Phone: Clinical Notes 03-25-2022 to 05-27-2023 Emilia Key, RT(R) - 05/27/2023 11:40 AM Eileen Montelongo APRN.SOCIAL WORK ASSISTANT - 05/27/2023 11:33 AM Teresa Roger MD - 03/23/2023 8:12 AM Thomas Garrison APRN.SOCIAL WORK ASSISTANT - 10/30/2022 4:27 PM EST Note Date & Type Note Facility 05-27-2023 Note HNO ID: [id number] Author: Emilia Key RT(R) Service: Radiology Author Type: Technologist Type: Progress Notes Filed: 05/27/2023 12:19 PM Note Text: Radiology Service Progress Note PATIENT NAME: Idania Rust DATE OF SERVICE: May 27, 2023 TIME: 12:13 PM PATIENT IDENTITY VERIFICATION COMPLETED USING TWO (2) IDENTIFIERS: Name and Date of confirmed by patient verbally. FALL SCREENING: Has the patient had 2 falls in the last year or 1 fall with injury or currently using an Ambulatory Assistive Device (Walker, Cane, Wheelchair, Crutches, etc.)? No PATIENT GENDER DATA: Female. status: : No status: NO. PATIENT RELEVANT IMPLANT DATA REVIEWED: Not Applicable RADIOLOGY DEPARTMENT: General X-ray: Exam(s) Completed: Lower Extremity X-Ray(s): Foot, Left and Wt. Bearing PERIPHERAL IV DATA: Not applicable SIGNED BY: RT Ruby(R) May 27, 2023 12:13 PM [facility] 05-27-2023 Note HNO ID: [id number] Author: Eileen Abel APRN.SOCIAL WORK ASSISTANT Service: ? Author Type: Nurse Practitioner Type: Progress Notes Filed: 05/27/2023 4:44 PM Note Text: This note was created using NoteWriter. Subjective Idania Rust is a 18 year old female. 18 year old female with no PMH presents for complaints of foot pain. Acute onset yesterday Left foot Endorses that a bench from kitchen table fell onto left foot. +bruising +pain +pain with ROM Denies accompanying injuries. Denies head injury. Denies LOC. Denies neck pain. Denies back pain. Denies prior history of foot fracture or surgery. 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 No faith healer was used. Pain (foot) Pain location: left foot. This is a new problem. The current episode started yesterday. There has been a history of trauma. The problem occurs constantly. The problem has been unchanged. The quality of the pain is described as aching and sharp. The pain is at a severity of 5/10. The pain is moderate. Associated symptoms include joint swelling and a limited range of motion. Pertinent negatives include no fever, inability to bear weight, itching, joint locking, numbness, stiffness or tingling. The symptoms are aggravated by activity. She has tried nothing for the symptoms. The treatment provided no relief. Family history does not include gout or rheumatoid arthritis. There is no history of diabetes, gout, osteoarthritis or rheumatoid arthritis. PAST MEDICAL HISTORY Diagnosis Date Broken fibula 07/2016 Menstrual periods irregular 03/26/2018 NEGATIVE MEDICAL HISTORY 03/2008 Normal Color Vision PAST SURGICAL HISTORY Procedure Laterality Date NONE ALLERGIES Orapred [Prednisolone Sodium Phosphate] MEDICATIONS albuterol HFA (VENTOLIN HFA) 90 mcg/actuation inhaler Inhale 2 Puffs as instructed every 4 hours as needed for wheezing/shortness of breath. sodium chloride (SALINE MIST) 0.65 % nasal spray Use 1 Dewitt in the nose as needed for cold/allergy symptoms. loratadine (CLARITIN) 10 mg tablet Take 1 tablet by mouth once daily. FAMILY HISTORY Problem Relation Age of Onset Asthma Father Social History Tobacco Use Smoking status: Never Smokeless tobacco: Never Vaping Use Vaping Use: Never used Substance Use Topics Alcohol use: No Drug use: No Review of Systems Constitutional: Negative for activity change, appetite change, diaphoresis, fatigue and fever. Eyes: Negative for pain, discharge, redness and itching. Respiratory: Negative for apnea, cough, choking, chest tightness and shortness of breath. Cardiovascular: Negative for chest pain, palpitations and leg swelling. Gastrointestinal: Negative for abdominal pain, diarrhea, nausea and vomiting. Musculoskeletal: Negative for arthralgias, back pain, gout and stiffness. Left foot Skin: Negative for color change, itching, pallor, rash and wound. Allergic/Immunologic: Negative for environmental allergies, food allergies and immunocompromised state. Neurological: Negative for dizziness, tingling, facial asymmetry and numbness. Hematological: Negative for adenopathy. Does not bruise/bleed easily. Psychiatric/Behavioral: Negative for agitation and behavioral problems. Objective BP 122/78 Pulse 71 Temp 36.9 ?C (98.4 ?F) (Tympanic) Resp 18 Wt 61 kg (134 lb 6.4 oz) LMP 06/01/2021 SpO2 100% Physical Exam Vitals and nursing note reviewed. Constitutional: General: She is not in acute distress. Appearance: Normal appearance. She is normal weight. She is not ill-appearing, toxic-appearing or diaphoretic. HENT: Head: Normocephalic and atraumatic. Right Ear: Ear canal and external ear normal. Left Ear: Ear canal and external ear normal. Nose: Nose normal. No congestion or rhinorrhea. Mouth/Throat: Mouth: Mucous membranes are moist. Pharynx: No oropharyngeal exudate or posterior oropharyngeal erythema. Eyes: General: Right eye: No discharge. Left eye: No discharge. Extraocular Movements: Extraocular movements intact. Conjunctiva/sclera: Conjunctivae normal. Pupils: Pupils are equal, round, and reactive to light. Cardiovascular: Rate and Rhythm: Normal rate and regular rhythm. Pulses: Normal pulses. Heart sounds: Normal heart sounds. No murmur heard. No friction rub. Pulmonary: Effort: Pulmonary effort is normal. No respiratory distress. Breath sounds: Normal breath sounds. No stridor. No wheezing, rhonchi or rales. Chest: Chest wall: No tenderness. Abdominal: General: Abdomen is flat. There is no distension. Palpations: Abdomen is soft. There is no mass. Tenderness: There is no abdominal tenderness. There is no right CVA tenderness, left CVA tenderness, guarding or rebound. Hernia: No hernia is present. Musculoskeletal: General: Tenderness and signs of injury present. No swelling or deformity. Cervical back: Normal range of motion (more content not included)... [facility] 05-27-2023 History of Presen t illness Narrative Radiology Service Progress Note PATIENT NAME: Idania Rust DATE OF SERVICE: May 27, 2023 TIME: 12:13 PM PATIENT IDENTITY VERIFICATION COMPLETED USING TWO (2) IDENTIFIERS: Name and Date of confirmed by patient verbally. FALL SCREENING: Has the patient had 2 falls in the last year or 1 fall with injury or currently using an Ambulatory Assistive Device (Walker, Cane, Wheelchair, Crutches, etc.)? No PATIENT GENDER DATA: Female. status: : No status: NO. PATIENT RELEVANT IMPLANT DATA REVIEWED: Not Applicable RADIOLOGY DEPARTMENT: General X-ray: Exam(s) Completed: Lower Extremity X-Ray(s): Foot, Left and Wt. Bearing PERIPHERAL IV DATA: Not applicable SIGNED BY: RT Ruby(R) May 27, 2023 12:13 PM documented in this encounter [facility] 05-27-2023 History of Presen t illness Narrative Images from the original note were not included. This note was created using [employer]. Subjective Idania Rust is a 18 year old female. 18 year old female with no PMH presents for complaints of foot pain. Acute onset yesterday Left foot Endorses that a bench from kitchen table fell onto left foot. +bruising +pain +pain with ROM Denies accompanying injuries. Denies head injury. Denies LOC. Denies neck pain. Denies back pain. Denies prior history of foot fracture or surgery. 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 No faith healer was used. Pain (foot) Pain location: left foot. This is a new problem. The current episode started yesterday. There has been a history of trauma. The problem occurs constantly. The problem has been unchanged. The quality of the pain is described as aching and sharp. The pain is at a severity of 5/10. The pain is moderate. Associated symptoms include joint swelling and a limited range of motion. Pertinent negatives include no fever, inability to bear weight, itching, joint locking, numbness, stiffness or tingling. The symptoms are aggravated by activity. She has tried nothing for the symptoms. The treatment provided no relief. Family history does not include gout or rheumatoid arthritis. There is no history of diabetes, gout, osteoarthritis or rheumatoid arthritis. PAST MEDICAL HISTORY Diagnosis Date Broken fibula 07/2016 Menstrual periods irregular 03/26/2018 NEGATIVE MEDICAL HISTORY 03/2008 Normal Color Vision PAST SURGICAL HISTORY Procedure Laterality Date NONE ALLERGIES Orapred [Prednisolone Sodium Phosphate] MEDICATIONS albuterol HFA (VENTOLIN HFA) 90 mcg/actuation inhaler Inhale 2 Puffs as instructed every 4 hours as needed for wheezing/shortness of breath. sodium chloride (SALINE MIST) 0.65 % nasal spray Use 1 Dewitt in the nose as needed for cold/allergy symptoms. loratadine (CLARITIN) 10 mg tablet Take 1 tablet by mouth once daily. FAMILY HISTORY Problem Relation Age of Onset Asthma Father Social History Tobacco Use Smoking status: Never Smokeless tobacco: Never Vaping Use Vaping Use: Never used Substance Use Topics Alcohol use: No Drug use: No Review of Systems Constitutional: Negative for activity change, appetite change, diaphoresis, fatigue and fever. Eyes: Negative for pain, discharge, redness and itching. Respiratory: Negative for apnea, cough, choking, chest tightness and shortness of breath. Cardiovascular: Negative for chest pain, palpitations and leg swelling. Gastrointestinal: Negative for abdominal pain, diarrhea, nausea and vomiting. Musculoskeletal: Negative for arthralgias, back pain, gout and stiffness. Left foot Skin: Negative for color change, itching, pallor, rash and wound. Allergic/Immunologic: Negative for environmental allergies, food allergies and immunocompromised state. Neurological: Negative for dizziness, tingling, facial asymmetry and numbness. Hematological: Negative for adenopathy. Does not bruise/bleed easily. Psychiatric/Behavioral: Negative for agitation and behavioral problems. Objective BP 122/78 Pulse 71 Temp 36.9 C (98.4 F) (Tympanic) Resp 18 Wt 61 kg (134 lb 6.4 oz) LMP 06/01/2021 SpO2 100% Physical Exam Vitals and nursing note reviewed. Constitutional: General: She is not in acute distress. Appearance: Normal appearance. She is normal weight. She is not ill-appearing, toxic-appearing or diaphoretic. HENT: Head: Normocephalic and atraumatic. Right Ear: Ear canal and external ear normal. Left Ear: Ear canal and external ear normal. Nose: Nose normal. No congestion or rhinorrhea. Mouth/Throat: Mouth: Mucous membranes are moist. Pharynx: No oropharyngeal exudate or posterior oropharyngeal erythema. Eyes: General: Right eye: No discharge. Left eye: No discharge. Extraocular Movements: Extraocular movements intact. Conjunctiva/sclera: Conjunctivae normal. Pupils: Pupils are equal, round, and reactive to light. Cardiovascular: Rate and Rhythm: Normal rate and regular rhythm. Pulses: Normal pulses. Heart sounds: Normal heart sounds. No murmur heard. No friction rub. Pulmonary: Effort: Pulmonary effort is normal. No respiratory distress. Breath sounds: Normal breath sounds. No stridor. No wheezing, rhonchi or rales. Chest: Chest wall: No tenderness. Abdominal: General: Abdomen is flat. There is no distension. Palpations: Abdomen is soft. There is no mass. Tenderness: There is no abdominal tenderness. There is no right CVA tenderness, left CVA tenderness, guarding or rebound. Hernia: No hernia is present. Musculoskeletal: General: Tenderness and signs of injury present. No swelling or deformity. Cervical back: Normal range of motion and neck supple. No rigidity. Right lower leg: No edema. Left lower leg: No edema. Feet: Lymphadenopathy: Cervical: No cervical adenopathy. Skin: General: Skin is warm and dry. Capillary Refill: Capillary refill takes less than 2 seconds. Coloration: Skin is not jaundiced or pale. Findings: No bruising, erythema, lesion or rash. Neurological: General: No focal deficit present. Mental Status: She is alert and oriented to person, place, and time. Cranial Nerves: No cranial nerve deficit. Sensory: No sensory deficit. Motor: No weakness. Coordination: Coordination normal. Gait: Gait normal. Psychiatric: Mood and Affect: Mood normal. Behavior: Behavior normal. Thought Content: Thought content normal. Judgment: Judgment normal. Assessment and Plan ASSESSMENT/PLAN: 1. Foot pain, left - ICD9: 729.5, ICD10: M79.672 (primary diagnosis) X 1 day Occurred yesterday with the bench of a table falling onto his left foot. No head injury or trauma - XR FOOT GENERAL 3V AP/LAT/OBL LEFT-negative for acute process RICE therapy OTC analgesics Follow up with PCP and or podiatry as needed. 2. Contusion of left foot, initial encounter - ICD9: 924.20, ICD10: S90.32XA X 1 day Occurred yesterday with the bench of a table falling onto his left foot. No head injury or trauma - XR FOOT GENERAL 3V AP/LAT/OBL LEFT-negative for acute process RICE therapy OTC analgesics Follow up with PCP and or podiatry as needed. Eileen Abel APRN.SOCIAL WORK ASSISTANT documented in this encounter [facility] 03-23-2023 Note HNO ID: [id number] Author: Brendon Roger MD Service: ? Author Type: Physician Type: Progress Notes Filed: 03/23/2023 8:26 AM Note Text: Patient presents with: Chest Congestion: cough,sinus pressure and headache x 2 weeks HPI: Feeling allergies are flared for 2 weeks with cough, sinus symptoms worsened the last few days. Positive symptoms: Cough, Sinus pressure, Headache, Nasal Congestion, Rhinorrhea, Body Aches one day, green phlegm and sinus drainage Negative symptoms: Fever, Nausea, Vomiting, Diarrhea, OTC: Sudafed once and ran out, Ibuprofen, inhaler improves chest tightness, claritin Exercise induced asthma PAST MEDICAL HISTORY Diagnosis Date Broken fibula 07/2016 Menstrual periods irregular 03/26/2018 NEGATIVE MEDICAL HISTORY 03/2008 Normal Color Vision ACTIVE PROBLEM LIST Allergic Rhinitis MEDICATIONS: Current Outpatient Medications Medication Sig sodium chloride (SALINE MIST) 0.65 % nasal spray Use 1 Dewitt in the nose as needed for cold/allergy symptoms. loratadine (CLARITIN) 10 mg tablet Take 1 tablet by mouth once daily. VENTOLIN HFA 90 mcg/actuation inhaler Inhale 2 Puffs as instructed every 4 hours as needed for wheezing/shortness of breath. No current facility-administered medications for this visit. ALLERGIES: ALLERGIES Allergen Reactions Orapred [Prednisolo* Hives VITALS: BP 102/64 Pulse 98 Temp 36.8 ?C (98.3 ?F) Resp 16 Wt 62.1 kg (137 lb) LMP 06/01/2021 SpO2 99% PHYSICAL EXAM: GEN: Pleasant, in no acute distress. HEENT: PERRL, EOMI, conjunctiva clear Ears: canals clear. TMs without erythema, bulge, or effusion Sinuses: points to damon-glabellum as location of pressure Throat: moist mucous membranes, no erythema, no exudate Neck: supple, no thyromegaly, no lymphadenopathy HEART: regular rate and rhythm, no murmurs LUNGS: clear to auscultation, no wheezes or crackles, no increased WOB ASSESSMENT/PLAN: 1. Acute non-recurrent sinusitis, unspecified location - ICD9: 461.9, ICD10: J01.90 (primary diagnosis) Continue allergy treatment - AMOXICILLIN 875 MG-POTASSIUM CLAVULANATE 125 MG TABLET for secondary bacterial sinusitis 2. Wheezing - ICD9: 786.07, ICD10: R06.2 Refill - VENTOLIN HFA 90 MCG/ACTUATION AEROSOL INHALER Patient had adverse side effects from oral steroid as a child. Consider inhaled steroid asthma flare persists. Brendon Roger MD [facility] 03-23-2023 History of Presen t illness Narrative Patient presents with: Chest Congestion: cough,sinus pressure and headache x 2 weeks HPI: Feeling allergies are flared for 2 weeks with cough, sinus symptoms worsened the last few days. Positive symptoms: Cough, Sinus pressure, Headache, Nasal Congestion, Rhinorrhea, Body Aches one day, green phlegm and sinus drainage Negative symptoms: Fever, Nausea, Vomiting, Diarrhea, OTC: Sudafed once and ran out, Ibuprofen, inhaler improves chest tightness, claritin Exercise induced asthma PAST MEDICAL HISTORY Diagnosis Date Broken fibula 07/2016 Menstrual periods irregular 03/26/2018 NEGATIVE MEDICAL HISTORY 03/2008 Normal Color Vision ACTIVE PROBLEM LIST Allergic Rhinitis MEDICATIONS: Current Outpatient Medications Medication Sig sodium chloride (SALINE MIST) 0.65 % nasal spray Use 1 Dewitt in the nose as needed for cold/allergy symptoms. loratadine (CLARITIN) 10 mg tablet Take 1 tablet by mouth once daily. VENTOLIN HFA 90 mcg/actuation inhaler Inhale 2 Puffs as instructed every 4 hours as needed for wheezing/shortness of breath. No current facility-administered medications for this visit. ALLERGIES: ALLERGIES Allergen Reactions Orapred [Prednisolo* Hives VITALS: BP 102/64 Pulse 98 Temp 36.8 C (98.3 F) Resp 16 Wt 62.1 kg (137 lb) LMP 06/01/2021 SpO2 99% PHYSICAL EXAM: GEN: Pleasant, in no acute distress. HEENT: PERRL, EOMI, conjunctiva clear Ears: canals clear. TMs without erythema, bulge, or effusion Sinuses: points to damon-glabellum as location of pressure Throat: moist mucous membranes, no erythema, no exudate Neck: supple, no thyromegaly, no lymphadenopathy HEART: regular rate and rhythm, no murmurs LUNGS: clear to auscultation, no wheezes or crackles, no increased WOB ASSESSMENT/PLAN: 1. Acute non-recurrent sinusitis, unspecified location - ICD9: 461.9, ICD10: J01.90 (primary diagnosis) Continue allergy treatment - AMOXICILLIN 875 MG-POTASSIUM CLAVULANATE 125 MG TABLET for secondary bacterial sinusitis 2. Wheezing - ICD9: 786.07, ICD10: R06.2 Refill - VENTOLIN HFA 90 MCG/ACTUATION AEROSOL INHALER Patient had adverse side effects from oral steroid as a child. Consider inhaled steroid asthma flare persists. Brendon Roger MD documented in this encounter [facility] 10-30-2022 Note HNO ID: [id number] Author: Julissa Garrison APRN.BHARATH Service: ? Author Type: Nurse Practitioner Type: Progress Notes Filed: 10/30/2022 4:37 PM Note Text: Subjective HPI Rossy presents today with three day hx of cough, congestion, and both ears feel full. She is not feverish, she is eating and drinking. She has used her albuterol once today. Blood pressure 130/82, pulse 104, temperature 36.8 ?C (98.2 ?F), temperature source Tympanic, resp. rate 18, weight 58.4 kg (128 lb 12.8 oz), last menstrual period 06/01/2021, SpO2 99 %. PAST MEDICAL HISTORY Diagnosis Date Broken fibula 07/2016 Menstrual periods irregular 03/26/2018 NEGATIVE MEDICAL HISTORY 03/2008 Normal Color Vision PAST SURGICAL HISTORY Procedure Laterality Date NONE ALLERGIES Orapred [Prednisolone Sodium Phosphate] MEDICATIONS VENTOLIN HFA 90 mcg/actuation inhaler Inhale 2 Puffs as instructed every 4 hours as needed for wheezing/shortness of breath. sodium chloride (SALINE MIST) 0.65 % nasal spray Use 1 Dewitt in the nose as needed for cold/allergy symptoms. loratadine (CLARITIN) 10 mg tablet Take 1 tablet by mouth once daily. FAMILY HISTORY Problem Relation Age of Onset Asthma Father Social History Tobacco Use Smoking status: Never Smokeless tobacco: Never Vaping Use Vaping Use: Never used Substance Use Topics Alcohol use: No Drug use: No Review of Systems HENT: Ears feel full Respiratory: Positive for cough. All other systems reviewed and are negative. Objective Physical Exam Vitals and nursing note reviewed. Constitutional: Appearance: Normal appearance. HENT: Head: Normocephalic and atraumatic. Right Ear: Tympanic membrane, ear canal and external ear normal. Left Ear: Tympanic membrane, ear canal and external ear normal. Ears: Comments: Scant amount of fluid behind Tm Nose: Congestion present. Mouth/Throat: Mouth: Mucous membranes are dry. Pharynx: No oropharyngeal exudate or posterior oropharyngeal erythema. Eyes: Pupils: Pupils are equal, round, and reactive to light. Cardiovascular: Rate and Rhythm: Normal rate and regular rhythm. Heart sounds: No murmur heard. Pulmonary: Effort: Pulmonary effort is normal. No respiratory distress. Breath sounds: Normal breath sounds. No stridor. No wheezing, rhonchi or rales. Chest: Chest wall: No tenderness. Abdominal: General: Abdomen is flat. Palpations: Abdomen is soft. Musculoskeletal: General: Normal range of motion. Cervical back: Normal range of motion and neck supple. Lymphadenopathy: Cervical: No cervical adenopathy. Skin: General: Skin is warm and dry. Neurological: General: No focal deficit present. Mental Status: She is alert and oriented to person, place, and time. ASSESSMENT/PLAN: 1. Cough, unspecified type - ICD9: 786.2, ICD10: R05.9 Viral appearing Increased fluids Tea and honey Saline nasal spray Claritin Continue to use albuterol as needed - COVID WITH FLUA+B, ROUTINE Julissa Garrison APRN.[facility] 10-30-2022 History of Presen t illness Narrative Subjective HPI Rossy presents today with three day hx of cough, congestion, and both ears feel full. She is not feverish, she is eating and drinking. She has used her albuterol once today. Blood pressure 130/82, pulse 104, temperature 36.8 C (98.2 F), temperature source Tympanic, resp. rate 18, weight 58.4 kg (128 lb 12.8 oz), last menstrual period 06/01/2021, SpO2 99 %. PAST MEDICAL HISTORY Diagnosis Date Broken fibula 07/2016 Menstrual periods irregular 03/26/2018 NEGATIVE MEDICAL HISTORY 03/2008 Normal Color Vision PAST SURGICAL HISTORY Procedure Laterality Date NONE ALLERGIES Orapred [Prednisolone Sodium Phosphate] MEDICATIONS VENTOLIN HFA 90 mcg/actuation inhaler Inhale 2 Puffs as instructed every 4 hours as needed for wheezing/shortness of breath. sodium chloride (SALINE MIST) 0.65 % nasal spray Use 1 Dewitt in the nose as needed for cold/allergy symptoms. loratadine (CLARITIN) 10 mg tablet Take 1 tablet by mouth once daily. FAMILY HISTORY Problem Relation Age of Onset Asthma Father Social History Tobacco Use Smoking status: Never Smokeless tobacco: Never Vaping Use Vaping Use: Never used Substance Use Topics Alcohol use: No Drug use: No Review of Systems HENT: Ears feel full Respiratory: Positive for cough. All other systems reviewed and are negative. Objective Physical Exam Vitals and nursing note reviewed. Constitutional: Appearance: Normal appearance. HENT: Head: Normocephalic and atraumatic. Right Ear: Tympanic membrane, ear canal and external ear normal. Left Ear: Tympanic membrane, ear canal and external ear normal. Ears: Comments: Scant amount of fluid behind Tm Nose: Congestion present. Mouth/Throat: Mouth: Mucous membranes are dry. Pharynx: No oropharyngeal exudate or posterior oropharyngeal erythema. Eyes: Pupils: Pupils are equal, round, and reactive to light. Cardiovascular: Rate and Rhythm: Normal rate and regular rhythm. Heart sounds: No murmur heard. Pulmonary: Effort: Pulmonary effort is normal. No respiratory distress. Breath sounds: Normal breath sounds. No stridor. No wheezing, rhonchi or rales. Chest: Chest wall: No tenderness. Abdominal: General: Abdomen is flat. Palpations: Abdomen is soft. Musculoskeletal: General: Normal range of motion. Cervical back: Normal range of motion and neck supple. Lymphadenopathy: Cervical: No cervical adenopathy. Skin: General: Skin is warm and dry. Neurological: General: No focal deficit present. Mental Status: She is alert and oriented to person, place, and time. ASSESSMENT/PLAN: 1. Cough, unspecified type - ICD9: 786.2, ICD10: R05.9 Viral appearing Increased fluids Tea and honey Saline nasal spray Claritin Continue to use albuterol as needed - COVID WITH FLUA+B, ROUTINE Julissa Garrison APRN.SOCIAL WORK ASSISTANT documented in this encounter [facility] 08-19-2022 Miscellaneous Notes Number on file is mother Eileen. Results given. Voices understanding. Deedee German LPN Please call patient and let her know her blood work is in normal limits. Julissa Mccray APRN.CNP documented in this encounter [facility] 08-18-2022 Note HNO ID: [id number] Author: Julissa Mccray APRN.CNP Service: ? Author Type: Nurse Practitioner Type: Progress Notes Filed: 08/18/2022 12:16 PM Note Text: 08/18/2022 Patient presents with: Transition Of Care SUBJECTIVE: This is a 17 year old that is here today for Above Complaints.. 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 Since COVID-19 last year has had some racing heart issues. Notices it mostly about two weeks before her menstrual cycle. Also feels heart races when going up stairs at times. When she gets them last a few minutes. Admits to SOB with them but thinks maybe that is because it scares her. Denies accompanying diaphoresis, dizziness, lightheadedness, dyspnea, cough, chest pain, jaw/back pain, or nausea. Runs about two miles a day. Does not have any issues when she runs or after. Past medical, surgical, family, social hx, medications, allergies and health maintenance reviewed and updated PAST MEDICAL HISTORY Diagnosis Date Broken fibula 07/2016 Menstrual periods irregular 03/26/2018 NEGATIVE MEDICAL HISTORY 03/2008 Normal Color Vision ALLERGIES Orapred [Prednisolone Sodium Phosphate] MEDICATIONS Current Outpatient Medications Medication Sig VENTOLIN HFA 90 mcg/actuation inhaler Inhale 2 Puffs as instructed every 4 hours as needed for wheezing/shortness of breath. No current facility-administered medications for this visit. Medications and allergies reviewed by this provider. SOCIAL HISTORY Social History Tobacco Use Smoking status: Never Smokeless tobacco: Never Substance Use Topics Alcohol use: No Drug use: No REVIEW OF SYSTEMS GENERAL: No weight loss, malaise or fevers HEENT: Negative for frequent or significant headaches, No changes in hearing or vision, no nose bleeds or other nasal problems NECK: Negative for lumps, goiter, pain and significant neck swelling RESPIRATORY: Negative for cough, hemoptysis, wheezing, COPD, dyspnea or shortness of breath CARDIOVASCULAR: Negative for chest pain, leg swelling, hypertension, CHF GI: No nausea, vomiting, or diarrhea : No history of dysuria, frequency or incontinence ARCHITECT MANAGER: Negative for abnormal vaginal bleeding, abnormal vaginal discharge MUSCULOSKELETAL: Negative for joint pain or swelling, back pain or muscle pain SKIN: Negative for lesions, rash, and itching PSYCH: Negative for sleep disturbance, mood disorder and recent psychosocial stressors HEMATOLOGY/LYMPHOLOGY: Negative for prolonged bleeding, bruising easily or swollen nodes ENDOCRINE: Negative for cold or heat intolerance, polyuria, polydipsia and goiter NEURO: No history of headaches, syncope, paralysis, seizures or tremors OBJECTIVE: BP 108/72 Pulse 71 Resp 16 Wt 57.4 kg (126 lb 9.6 oz) LMP 06/01/2021 SpO2 100% . Vital signs reviewed by this provider. APPEARANCE Well appearing, alert, in no acute distress, well-hydrated, well nourished. EYES PERRLA, conjunctiva and sclera normal. EARS External ears normal, canals clear NECK Supple, no adenopathy; thyroid symmetric, normal size, no bruits HEART RRR with normal S1 and S2, no murmurs, no gallops, no JVD appreciated LUNG clear to auscultation. No wheezes, rhonchi or rales EXTREMITIES Extremities normal, No deformities, No skin discoloration, and No edema SKIN Skin color, texture, turgor normal, no suspicious rashes or lesions to exposed skin INFLUENZA(1) due on 05/08/2023 GC (GONORRHEA) SCREENING (18-24) due on 08/18/2023 MENINGOCOCCAL B: Consider based on risk(1 of 2 - Risk Bexsero 2-dose series) due on 08/18/2023 HEPATITIS C SCREENING due on 08/18/2023 HIV SCREENING due on 08/18/2023 COVID-19 VACCINE(1) due on 08/18/2023 CHLAMYDIA SCREENING (18-24) due on 08/18/2023 DTAP,TDAP,TD(7 - Td or Tdap) due on 04/26/2024 HEPATITIS B Completed HPV VACCINE Completed MENINGOCOCCAL CONJUGATE Completed DEPRESSION ASSESSMENT Completed ASSESSMENT/PLAN: 1. Routine physical examination - ICD9: V70.0, ICD10: Z00.00 (primary diagnosis) - Counseled on healthy diet and regular exercise - Depression screening tool completed and reviewed with patient. Based on score and interview, patient is not at risk for depression and recommended no further intervention at this time. - Follow up for annual exam in one year 2. Racing heart beat - ICD9: 785.0, ICD10: R00.0 - no red flag symptoms or exam findings - red flag symptoms discussed, verbalizes understanding - TSH BLD - COMP METABOLIC PANEL - CBC - ECG COMPLETE EKG Interpretation: RHYTHM: Normal sinus rhythm at 63 beats per minute with marked sinus arrhythmia AXIS: Normal axis INTERVALS: Normal MN interval QRS COMPLEX: Normal ST SEGMENT: Normal ST-T segments QT INTERVAL: Normal COMPARED WITH PRIOR: None available - offered to place ZIO patch, patient declines at this time - follow-up as needed 3. Encounter to establish care - ICD9: V65.8, ICD10: Z76.89 - plan a (more content not included)... [facility] 08-18-2022 History of Presen t illness Narrative 08/18/2022 Patient presents with: Transition Of Care SUBJECTIVE: This is a 17 year old that is here today for Above Complaints.. 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 Since COVID-19 last year has had some racing heart issues. Notices it mostly about two weeks before her menstrual cycle. Also feels heart races when going up stairs at times. When she gets them last a few minutes. Admits to SOB with them but thinks maybe that is because it scares her. Denies accompanying diaphoresis, dizziness, lightheadedness, dyspnea, cough, chest pain, jaw/back pain, or nausea. Runs about two miles a day. Does not have any issues when she runs or after. Past medical, surgical, family, social hx, medications, allergies and health maintenance reviewed and updated PAST MEDICAL HISTORY Diagnosis Date Broken fibula 07/2016 Menstrual periods irregular 03/26/2018 NEGATIVE MEDICAL HISTORY 03/2008 Normal Color Vision ALLERGIES Orapred [Prednisolone Sodium Phosphate] MEDICATIONS Current Outpatient Medications Medication Sig VENTOLIN HFA 90 mcg/actuation inhaler Inhale 2 Puffs as instructed every 4 hours as needed for wheezing/shortness of breath. No current facility-administered medications for this visit. Medications and allergies reviewed by this provider. SOCIAL HISTORY Social History Tobacco Use Smoking status: Never Smokeless tobacco: Never Substance Use Topics Alcohol use: No Drug use: No REVIEW OF SYSTEMS GENERAL: No weight loss, malaise or fevers HEENT: Negative for frequent or significant headaches, No changes in hearing or vision, no nose bleeds or other nasal problems NECK: Negative for lumps, goiter, pain and significant neck swelling RESPIRATORY: Negative for cough, hemoptysis, wheezing, COPD, dyspnea or shortness of breath CARDIOVASCULAR: Negative for chest pain, leg swelling, hypertension, CHF GI: No nausea, vomiting, or diarrhea : No history of dysuria, frequency or incontinence ARCHITECT MANAGER: Negative for abnormal vaginal bleeding, abnormal vaginal discharge MUSCULOSKELETAL: Negative for joint pain or swelling, back pain or muscle pain SKIN: Negative for lesions, rash, and itching PSYCH: Negative for sleep disturbance, mood disorder and recent psychosocial stressors HEMATOLOGY/LYMPHOLOGY: Negative for prolonged bleeding, bruising easily or swollen nodes ENDOCRINE: Negative for cold or heat intolerance, polyuria, polydipsia and goiter NEURO: No history of headaches, syncope, paralysis, seizures or tremors OBJECTIVE: BP 108/72 Pulse 71 Resp 16 Wt 57.4 kg (126 lb 9.6 oz) LMP 06/01/2021 SpO2 100% . Vital signs reviewed by this provider. APPEARANCE Well appearing, alert, in no acute distress, well-hydrated, well nourished. EYES PERRLA, conjunctiva and sclera normal. EARS External ears normal, canals clear NECK Supple, no adenopathy; thyroid symmetric, normal size, no bruits HEART RRR with normal S1 and S2, no murmurs, no gallops, no JVD appreciated LUNG clear to auscultation. No wheezes, rhonchi or rales EXTREMITIES Extremities normal, No deformities, No skin discoloration, and No edema SKIN Skin color, texture, turgor normal, no suspicious rashes or lesions to exposed skin INFLUENZA(1) due on 05/08/2023 GC (GONORRHEA) SCREENING (18-24) due on 08/18/2023 MENINGOCOCCAL B: Consider based on risk(1 of 2 - Risk Bexsero 2-dose series) due on 08/18/2023 HEPATITIS C SCREENING due on 08/18/2023 HIV SCREENING due on 08/18/2023 COVID-19 VACCINE(1) due on 08/18/2023 CHLAMYDIA SCREENING (18-24) due on 08/18/2023 DTAP,TDAP,TD(7 - Td or Tdap) due on 04/26/2024 HEPATITIS B Completed HPV VACCINE Completed MENINGOCOCCAL CONJUGATE Completed DEPRESSION ASSESSMENT Completed ASSESSMENT/PLAN: 1. Routine physical examination - ICD9: V70.0, ICD10: Z00.00 (primary diagnosis) - Counseled on healthy diet and regular exercise - Depression screening tool completed and reviewed with patient. Based on score and interview, patient is not at risk for depression and recommended no further intervention at this time. - Follow up for annual exam in one year 2. Racing heart beat - ICD9: 785.0, ICD10: R00.0 - no red flag symptoms or exam findings - red flag symptoms discussed, verbalizes understanding - TSH BLD - COMP METABOLIC PANEL - CBC - ECG COMPLETE EKG Interpretation: RHYTHM: Normal sinus rhythm at 63 beats per minute with marked sinus arrhythmia AXIS: Normal axis INTERVALS: Normal MN interval QRS COMPLEX: Normal ST SEGMENT: Normal ST-T segments QT INTERVAL: Normal COMPARED WITH PRIOR: None available - offered to place ZIO patch, patient declines at this time - follow-up as needed 3. Encounter to establish care - ICD9: V65.8, ICD10: Z76.89 - plan as in #1 Julissa Mccray APRN.SOCIAL WORK ASSISTANT Prescription instructions reviewed with patient as applicable. Patient advised if symptoms do not improve or if symptoms worsen sooner, to contact their primary care physician. Potential red flag symptoms discussed with the patient. Reviewed appropriate action plan to take if red flag symptoms occur. Patient agreeable to treatment plan. I spent a total of 35 minutes on the date of the service which included preparing to see the patient, [id number] patient care, completing clinical documentation, obtaining and/or reviewing separately obtained history, performing a medically appropriate examination, counseling and educating the patient/family/caregiver, and ordering medications, tests, or procedures. documented in this encounter [facility] 03-27-2022 Miscellaneous Notes [facility] at [facility] aware Tena Sanon RN Yes ok to switch to formulary alternative. Judith Starr MD Lele josefina from [facility]. He states that patient has prescription for Ventolin with GABO flag selected. Insurance will not cover. He questions if okay to switch to formulary alternative? Palma Almaraz RN documented in this encounter [facility] 03-25-2022 Miscellaneous Notes Patient's request for medication is as follows: Signed Prescriptions Disp Refills VENTOLIN HFA 90 mcg/actuation inhaler 18 g 0 Sig: Inhale 2 Puffs as instructed every 4 hours as needed for wheezing/shortness of breath. GABO: Yes Authorizing Provider: JUDITH STARR Prescription(s) as above. Please process accordingly. Judith Starr MD Last [facility]: 06/03/2021 Verify RX Benefits Completed Last medication refill date: 01/31/2021 Requesting 30 day supply Retail pharmacy updated: Completed Patient aware RX will be sent to pharmacy. No need to notify patient. Immunizations due: COVID-19 VACCINE(1) Never done MENINGOCOCCAL B: Consider based on risk(1 of 2 - Risk Bexsero 2-dose series) Never done GC (GONORRHEA) SCREENING (18-24) Never done HEPATITIS C SCREENING Never done HIV SCREENING Never done CHLAMYDIA SCREENING (18-24) Never done Alexandra Kumar LPN documented in this encounter [facility] Evaluation note Diagnosis Routine physical examination- Primary Routine general medical examination at a health care facility Racing heart beat Tachycardia, unspecified Encounter to establish care Other reasons for seeking consultation [facility] Diagnosis Cough, unspecified type- Primary [facility] Diagnosis Acute non-recurrent sinusitis, unspecified location- Primary Wheezing [facility] Diagnosis Foot pain, left- Primary Pain in limb Contusion of left foot, initial encounter [facility] Foot pain, left Pain in limb [facility] Outpatient Procedure (Routine) - Closed Specialty Diagnoses / Procedures Referred By Contac t Referred To [facility] Diagnoses Racing heart beat Procedures ECG COMPLETE ECG ROUTINE ECG W/LEAST 12 LDS W/I&R PodlogJulissa valadez APRN.SOCIAL WORK ASSISTANT [address] [place] [address] [facility] [place] [address] [place] [address] Referral ID Status Reason Start Date Expiration Date V isits Requested Visits Authorized [id number] Closed Auto-Generate d Referral 08/18/2022 08/18/2023 1 1 [facility] Advance Directives Documents on File Type Date Recorded Patient Consumer Analyst Expl anation Advance Directive(s) Reason for Referral Specialty Diagnoses / Procedures Referred By Contac t Referred To Contact XR IMAGING Diagnoses Foot pain, left Procedures XR FOOT GENERAL 3V AP/LAT/OBL LEFT RADEX FOOT COMPLETE MINIMUM 3 VIEWS Eileen Abel APRN.SOCIAL WORK ASSISTANT [address] [place] [address] Xr Imaging Referral ID Status Reason Start Date Expiration Date V isits Requested Visits Authorized [id number] Closed Auto-Generate d Referral 05/27/2023 11/08/2023 1 1 Specialty Diagnoses / Procedures Referred By Contac t Referred To Contact XR IMAGING Diagnoses Foot pain, left Procedures XR FOOT GENERAL 3V AP/LAT/OBL LEFT RADEX FOOT COMPLETE MINIMUM 3 VIEWS Eileen Abel APRN.SOCIAL WORK ASSISTANT [address] [place] [address] [place] [id number] Summary Purpose Family History No Family History Records FoundNo Family History Records Found Additional Source Comments Source Comments (unrecognize d section and content) In the event this informatio n is protected by the Federal Confidentiality of Alcohol and Drug Abuse Patient Records regulations: The Federal rules restrict any use of the information to criminally investigate or prosecute any alcohol or drug abuse patient.[facility] the event this information is protected by the Federal Confidentiality of Alcohol and Drug Abuse Patient Records regulations: The Federal rules restrict any use of the information to criminally investigate or prosecute any alcohol or drug abuse patient.[facility] the event this information is protected by the Federal Confidentiality of Alcohol and Drug Abuse Patient Records regulations: The Federal rules restrict any use of the information to criminally investigate or prosecute any alcohol or drug abuse patient.[facility] the event this information is protected by the Federal Confidentiality of Alcohol and Drug Abuse Patient Records regulations: The Federal rules restrict any use of the information to criminally investigate or prosecute any alcohol or drug abuse patient.[facility] Center[facility] the event this information is protected by the Federal Confidentiality of Alcohol and Drug Abuse Patient Records regulations: The Federal rules restrict any use of the information to criminally investigate or prosecute any alcohol or drug abuse patient.[facility] Center[facility] the event this information is protected by the Federal Confidentiality of Alcohol and Drug Abuse Patient Records regulations: The Federal rules restrict any use of the information to criminally investigate or prosecute any alcohol or drug abuse patient.[facility] Center[facility] the event this information is protected by the Federal Confidentiality of Alcohol and Drug Abuse Patient Records regulations: The Federal rules restrict any use of the information to criminally investigate or prosecute any alcohol or drug abuse patient.[facility] Center[facility] the event this information is protected by the Federal Confidentiality of Alcohol and Drug Abuse Patient Records regulations: The Federal rules restrict any use of the information to criminally investigate or prosecute any alcohol or drug abuse patient.[facility] Reason for Visit (unrecogniz ed section and content) Reason Onset Date Comments Refill Request 03/25/2022 Reason Comments Medication Problem Reason Comments Transition Of Care Specialty Diagnoses / Procedures Referred By Contcori t Referred To Contact Family Medicine / FAMILY MEDICINE Diagnoses Follow-up exam PEDS TRANSFER from Dr. Alvarez Procedures OFFICE/OUTPATIENT ESTABLISHED MOD MDM 30-39 MIN 4C EXCEPTION Gabe Alvarez MD [address] [place] [address] PodlogJulissa valadez APRN.CNP [address] [place] [address] Referral ID Status Reason Start Date Expiration Date Visits Re quested Visits Authorized [id number] Closed 08/18/2022 11/08/2022 1 1 Reason Comments Results Reason Comments Ear Pain Bilateral ear pain, congestion and tight chest x 2 days Specialty Diagnoses / Procedures Referred By Contac t Referred To Contact [facility] Diagnoses Congestion of both ears Tight chest ears, congestion, tight chest Procedures OFFICE/OUTPATIENT ESTABLISHED MOD MDM 30-39 MIN EST SAME DAY Self Express [facility] [address] [place] [address] Referral ID Status Reason Start Date Expiration Date Visits Re quested Visits Authorized [id number] Closed 10/30/2022 11/08/2022 1 1 Reason Comments Chest Congestion cough,sinus pressure and headache x 2 weeks Specialty Diagnoses / Procedures [facility] Diagnoses chest congestion, cough, sinus, headache Procedures OFFICE/OUTPATIENT ESTABLISHED MOD MDM 30-39 MIN EST SAME DAY Norma Murphy MD [address] [place] [phone] Brendon Roger MD [address] [place] [phone] Referral ID Status Reason Start Date Expiration Date Visits Re quested Visits Authorized [id number] Closed 03/23/2023 11/08/2023 1 1 Reason Comments left foot pain Bench fell on foot y esterday Specialty Diagnoses / Procedures Referred By Zunilda t Referred To Contact [facility] Diagnoses Foot injury left foot injury Procedures OFFICE/OUTPATIENT ESTABLISHED MOD MDM 30-39 MIN EST SAME DAY Self Eileen Abel APRN.SOCIAL WORK ASSISTANT [address] [place] [address] Referral ID Status Reason Start Date Expiration Date Visits Re quested Visits Authorized [id number] Closed 05/27/2023 11/08/2023 1 1 Specialty Diagnoses / Procedures Referred By Zunilda t Referred To Contact XR IMAGING Diagnoses Foot pain, left Procedures XR FOOT GENERAL 3V AP/LAT/OBL LEFT RADEX FOOT COMPLETE MINIMUM 3 VIEWS Eileen Abel, EUNICE.SOCIAL WORK ASSISTANT [address] [place] [address] [place] [address] Referral ID Status Reason Start Date Expiration Date V isits Requested Visits Authorized [id number] Closed Auto-Generate d Referral 05/27/2023 11/08/2023 1 1 Care Teams (unrecognized sec tion and content) District Engineer Relationship Specialty Start Date End Date Judith Starr MD [address] [place] [address] PCP - General Pediatrics 05/05/19 District Engineer Relationship Specialty Start Date End Date Norma Murphy MD [address] [place] [address] PCP - General Family Medicine 08/18/22 District Engineer Relationship Specialty Start Date End Date Norma Murphy MD [address] [place] [address] PCP - General Family Medicine 08/18/22 District Engineer Relationship Specialty Start Date End Date Norma Murphy MD [address] [place] [address] PCP - General Family Medicine 08/18/22 District Engineer Relationship Specialty Start Date End Date Norma Murphy MD [facility] [place] [address] PCP - General Family Medicine 08/18/22 District Engineer Relationship Specialty Start Date End Date Norma Murphy MD [address] [place] [address] PCP - General Family Medicine 08/18/22 District Engineer Relationship Specialty Start Date End Date Norma Murphy MD [address] [place] [id number] PCP - General Family Medicine 08/18/22 INFORMATION SOURCE (unrecogn ized section and content) DATE CREATED AUTHOR 05/28/2023 [facility] DATE CREATED AUTHOR 'S ORGANIZ ATION 10/30/2023 [facility] FOR RECORDS PERTAINING TO PATIENTS WHO ARE OR HAVE BEEN ENROLLED IN A CHEMICAL DEPENDENCY/SUBSTANCEABUSE PROGRAM, SOME INFORMATION MAY BE OMITTED. This clinical summary was aggregated from multiple sources. Caution should be exercised in using it in the provision of clinical care. This summary normalizes information from multiple sources, and as a consequence, information in this document may materially change the coding, format and clinical context of patient data. In addition, data may be omitted in some cases. CLINICAL DECISIONS SHOULD BE BASED ON THE PRIMARY CLINICAL RECORDS. [facility] [employer] [facility] provides no warranty or guarantee of the accuracy or completeness of information in this document.
== END | disposition home or self-care (01) ==
LOC: LABSPEC 16:44
PROVIDERS: PCP Pediatrics; Referring Provider Nurse Practitioner Family; Visit Provider Nurse Practitioner Family
DX: Z00.00 Encounter for general adult medical examination without abnormal findings (principal)
CPT/HCPCS: 88175; G0145